=== PATIENT | male | born 1980 | race Caucasian/White ===

== ENCOUNTER 2017-12-05 18:18 | Observation (INO) | payer MEDICARE ==
[~2017-12-05] VITALS: Ht 182.9 cm; Wt 124.7 kg
[~2017-12-05 18:18] MED LIST: OXYCONTIN80 M1 PO; [UNRECOGNIZED DRUG - OTHER] PO
[2017-12-05] MEDS ORDERED: ASPIRIN 81 MG CHEW TAB PO ONE (18:45)
[2017-12-05] MEDS ORDERED: METHADONE PO (18:46)
[2017-12-05 19:18] LABS: BASOPHILS # (AUTO) 0.1 (0.0-0.1); BASOPHILS % 0.8 % (0.0-1.0); EOSINOPHILS # (AUTO) 0.3 (0.0-0.4); EOSINOPHILS % 3.4 % (0.0-6.0); HEMATOCRIT 37.6 % (38.2-49.6); HEMOGLOBIN 13.3 g/dL (14.0-18.0); LYMPHOCYTES % 34.2 % (18.0-39.1); MEAN CORPUSCULAR HEMOGLOBIN 29.9 pg (28-32); MEAN CORPUSCULAR HGB CONC 35.4 g/dL (31-35); MEAN CORPUSCULAR VOLUME 84.5 fL (81-99); MONOCYTES # (AUTO) 0.8 (0.2-0.8); MONOCYTES % 8.6 % (4.4-11.3); NEUTROPHILS # (AUTO) 4.6 (2.1-6.9); NEUTROPHILS % 52.2 % (38.7-80.0); PLATELET COUNT 269 x10e3/uL (140-360); RED BLOOD COUNT 4.45 x10e6/uL (4.3-5.7)
--- NOTE | 2017-12-05 19:24 | Diagnostic Imaging Report ---
EXAMINATION: CHEST SINGLE (PORTABLE) INDICATION: \S\CHEST PAIN \S\[id number] \S\1855 \S\Y COMPARISON: None FINDINGS: AP view TUBES and LINES: None. LUNGS: Lungs are well inflated. Lungs are clear. There is no evidence of pneumonia or pulmonary edema. PLEURA: No pleural effusion or pneumothorax. HEART AND MEDIASTINUM: The cardiomediastinal silhouette is unremarkable. BONES AND SOFT TISSUES: No acute osseous lesion. Soft tissues are unremarkable. UPPER ABDOMEN: No free air under the diaphragm. IMPRESSION: No acute thoracic abnormality. Signed by: DR. Aaron Alicia MD on 12/05/2017 7:20 PM
[2017-12-05 19:35] LABS: ALANINE AMINOTRANSFERASE 27 IU/L (0-55); ALBUMIN 3.9 g/dL (3.5-5.0); ALKALINE PHOSPHATASE 64 IU/L (40-150); BLOOD UREA NITROGEN 18 mg/dL (7-26); BUN/CREATININE RATIO 16 (6-25); CALCIUM 9.7 mg/dL (8.4-10.2); CARBON DIOXIDE 25 mmol/L (22-29); CHLORIDE 102 mmol/L (98-107); CREATINE KINASE 428 IU/L (30-200); EST GLOMERULAR FILTRATION RATE > 60 ML/MIN (60-); GLUCOSE 97 mg/dL (74-118); SODIUM 139 mmol/L (136-145)
[2017-12-05 20:17] LABS: INR 0.98; PROTHROMBIN TIME 12.2 seconds (11.9-14.5)
[2017-12-05 20:19] LABS: PARTIAL THROMBOPLASTIN TIME 39.8 seconds (23.8-35.5)
[2017-12-05] MEDS ORDERED: ENOXAPARIN SODIUM INJ 100 MG/ML SYR SC STA (20:53)
[2017-12-05] MEDS ORDERED: SODIUM CHLORIDE FLUSH 10 ML SYR INJ PRN (21:45)
[2017-12-05 23:00] VITALS: BP 134/80
[2017-12-06] VITALS (8 sets, daily range): BP systolic 115–138; BP diastolic 64–93
[2017-12-06] MEDS: FAMOTIDINE 20 MG/2 ML VIAL IV SCH ×2 (00:47→08:40)
[2017-12-06 04:11] LABS: CHOL/HDL RATIO 6.5 (3.9-4.7); CHOLESTEROL 181 MD/DL (0-199); HDL CHOLESTEROL 28 MG/DL (40-60); TRIGLYCERIDES 577 MG/DL (0-149)
[2017-12-06 04:13] LABS: CREATINE KINASE MB 2.1 ng/mL (0-5.0)
--- NOTE | 2017-12-06 06:36 | Diagnostic Imaging Report ---
EXAMINATION: CHEST XRAY LINE PLACEMENT INDICATION: PICC line placement. COMPARISON: December 05, 2017 FINDINGS: TUBES and LINES: Left upper extremity PICC line is in place with tip at the level of the atriocaval junction. LUNGS: Lungs are not well inflated. Lungs are clear. There is no evidence of pneumonia or pulmonary edema. PLEURA: No pleural effusion or pneumothorax. HEART AND MEDIASTINUM: The cardiomediastinal silhouette is unremarkable. BONES AND SOFT TISSUES: No acute osseous lesion. Soft tissues are unremarkable. UPPER ABDOMEN: No free air under the diaphragm. IMPRESSION: No acute thoracic abnormality. Signed by: Dr. Etienne Soler M.D. on 12/06/2017 6:33 AM
[2017-12-06] MEDS ORDERED: METHADONE PO SCH ×2 (09:00)
[2017-12-06] MEDS ORDERED: NICOTINE 21 MG/EA PATCH TOP SCH (09:00)
[2017-12-06] MEDS ORDERED: ASPIRIN 81 MG ENTERIC COATED PO SCH (09:00)
[2017-12-06] MEDS ORDERED: METHADONE HCL 10 MG TAB PO SCH (12:00)
[2017-12-06 12:28] LABS: CREATINE KINASE MB 2.2 ng/mL (0-5.0)
--- NOTE | 2017-12-06 14:16 | Diagnostic Imaging Report ---
Ventilation/perfusion lung scan Clinical Information:37 F with chest pain and dyspnea Comparison: Chest radiograph 12/05/2017 Discussion: Xenon-133 gas 9.4 mCi was administered via inhalation. Dynamic images of the lungs in the posterior projection were obtained through single breath, equilibrium, and washout phases. Distribution of tracer activity is mildly irregular throughout the lungs. There are no segmental ventilatory defects. Washout of tracer is diffusely delayed with no air trapping. Perfusion images of the lungs were obtained in multiple projections following intravenous administration of approximately 6.0 mCi of Tc-99m MAA. Distribution of tracer is mildly irregular throughout the lungs. The contours of the lungs are well demarcated. There are no segmental perfusion defects of any size. The cardiomediastinal silhouette is unremarkable. Impression: Scan findings represent a VERY LOW probability for acute pulmonary embolic disease based on the PIOPED II criteria. Scan evidence of obstructive lung disease. Signed by: Dr. Irene Graf M.D. on 12/06/2017 2:13 PM
[2017-12-06 16:48] LABS: ABG PH 7.43 (7.31-7.41)
[2017-12-06 16:49] LABS: ABG HCO3 32 mmol/L (23-28); ABG PCO2 49 mmHg (41-51); ABG PO2 74 mmHg (80-105)
--- NOTE | 2017-12-06 17:45 | Diagnostic Imaging Report ---
PROCEDURE: CT CHEST WITHOUT CONTRAST CT scan of the chest WITHOUT intravenous contrast, using standard protocol. TECHNIQUE: The chest was scanned utilizing A multidetector helical scanner from the apex to the level of the adrenal glands. No IV contrast was administered per physician's request. Coronal and sagittal multiplanar reformations were obtained. COMPARISON: Patients [facility], , CHEST SINGLE (PORTABLE), 12/05/2017, 18:58. INDICATIONS: SHORT OF BREATH , CHEST PAIN FINDINGS: Lack of intravenous contrast limits evaluation of parenchymal findings or vascular pathology. Lines/tubes: Left-sided PICC line has distal tip at the distal SVC/cavoatrial junction. Lungs and Airways: 2 mm calcified granuloma in the posterolateral right lower lobe (series 3, image 42). Lungs are clear, without nodules, masses, opacities or consolidation. Airways are clear, without endobronchial lesions. Pleura: No effusion, or pneumothorax. Heart and mediastinum: The thyroid is unremarkable. Heart size is normal. No pericardial effusion. Aorta is non-aneurysmal. Main pulmonary arteries normal in caliber. Lymph nodes: No mediastinal, hilar, or axillary adenopathy. Abdomen: Limited non-enhanced of the upper abdomen show no abnormality within the visualized liver, spleen, pancreas, or kidneys. The adrenal glands are unremarkable. Distended, food-filled stomach. Bones: No aggressive lytic lesions. Mild degenerative disc changes in the lower thoracic spine. Soft tissues are unremarkable. IMPRESSION: 1. Essentially unremarkable chest CT. Kaleb Wall M.D. Dictated by: Kaleb Wall M.D. on 12/06/2017 at 17:50 Electronically approved by: Kaleb Wall M.D. on 12/06/2017 at 17:50
--- NOTE | 2017-12-06 18:27 | Consultation ---
DATE OF CONSULTATION: December 06, 2017 PULMONARY CONSULTATION REASON FOR CONSULTATION: Shortness of breath. HISTORY OF PRESENT ILLNESS: Mr. Castro is a 37-year-old male who presented to the emergency room with shortness of breath. Patient reports that the shortness of breath is even at rest. He denies any complaints of chest pain. He reports allergies, nasal congestion and wheezing. He has been a smoker for 20 years, 1 pack per day. 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 He is on methadone for pain control. REVIEW OF SYSTEMS: GENERAL: Denies any fever or chills. HEENT: Denies any head trauma. ENT denies any earache. CV: He denies any chest pain. RESPIRATORY: Shortness of breath. GI: Denies any nausea or vomiting. Rest of the review systems are negative except as in history of present illness. PAST MEDICAL HISTORY: Bilateral hip replacement surgery. PAST SURGICAL HISTORY: Bilateral hip replacement surgery. 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 He has been a smoker. He lives with his . PHYSICAL EXAMINATION: VITALS: Temperature 97.4, pulse of 64, blood pressure 129/64. Respiratory rate of 18. O2 sat 97%. HEENT: Normocephalic, atraumatic. NECK: Supple. CHEST: Clear to auscultation bilaterally. No wheezing. Decreased air entry. HEART: S1 and S2 audible. ABDOMEN: Soft and nontender. EXTREMITIES: No clubbing cyanosis or edema. NEUROLOGIC: Awake and alert. No focal neurologic deficit. LABORATORY DATA: White count of 8,000, hemoglobin 13.3. Platelets 269,000. Chemistries within normal limits. CPK's were high. ASSESSMENT AND PLAN: Mr. Castro is a 37-year-old male with shortness of breath. VQ scan is negative for any pulmonary embolism, possibility of asthma versus COPD. PLAN: 1. CT of the chest without contrast. 2. Pulmonary function test. 3. Start the patient on DuoNeb. 4. Pulmicort nebs. 5. ABG will be done as patient is on room and does not appear to be in any distress. Thank you for this consult. Job#: [id number]
[2017-12-06] MEDS ORDERED: BUDESONIDE 0.5MG/2 ML NEB INH SCH (19:00)
[2017-12-06] MEDS ORDERED: ALBUTEROL/IPRATROPIUM 3 ML NEB NEB SCH (19:00)
[2017-12-06] MEDS ORDERED: FAMOTIDINE 20 MG TAB PO SCH (21:00)
--- NOTE | 2017-12-07 00:15 | Consultation ---
DATE OF CONSULTATION: December 06, 2017 CARDIOLOGY CONSULTATION REASON FOR CONSULTATION: Chest pain. CHIEF COMPLAINT: "I feel like I cannot get enough air and my chest is going to hurt if I try to take a deep breath." HISTORY OF PRESENT ILLNESS: The patient is a 37-year-old male with a long history of smoking, over 2 packs a day and family history of hypertension, who has recently had a baby and is in the process of moving, is under a lot of stress in his everyday life. He presents to the hospital with a several weeks of feeling like he cannot catch his breath and cannot get enough air when he tries to take a deep breath. He denies any chest pain or pressure, however, says that he thinks if he took a deep breath, his chest would hurt. Other than smoking, he does not have any cardiovascular risk factors. He does not have diabetes, hypertension or hyperlipidemia and also very young at an age of 37. He has already been ruled out with negative cardiac enzymes and normal EKG. An echocardiogram has been ordered and performed. REVIEW OF SYSTEMS: Ten-point review of systems was performed, was negative other than what is mentioned in the history of present illness. PAST MEDICAL HISTORY: None. FAMILY HISTORY: History of hypertension in mother and siblings. SOCIAL HISTORY: Patient is a 2-pack per day smoker for past many years. Continues to smoke currently. Denies any significant alcohol or drug use. PHYSICAL EXAMINATION: VITAL SIGNS: Temperature 97.5, heart rate 61, respiratory rate 20, blood pressure 137/76, saturating 96% on room air. EYES: Conjunctivae clear. EARS, NOSE, MOUTH AND THROAT: Normal mucosa. No pallor or bleeding. NECK: No jugular venous distention. MUSCULOSKELETAL: Normal muscle tone and strength. No atrophy or abnormal movements. EXTREMITIES: No clubbing or cyanosis. No venostasis changes or ulcers. GENERAL: Well-developed, well-nourished, muscular male. CARDIOVASCULAR: PMI is nondisplaced. Regular S1 and S2. No murmurs, rubs or gallops. Normal carotid pulses. Palpable femoral pulses. Palpable pedal pulses. No peripheral edema or varicosities. RESPIRATORY: No respiratory distress. Lungs are clear to auscultation bilaterally. ABDOMEN: Soft, nontender, nondistended. No masses. No hepatosplenomegaly. NEURO AND PSYCH: Alert and oriented to person, place and time. Normal affect. MEDICATIONS: Aspirin 81 mg daily is his only cardiac medication at this time. IMAGING DATA: Reviewed. Notable for normal chest CT, normal EKG. TELEMETRY: Data reviewed, shows normal sinus rhythm with no significant arrhythmias. ASSESSMENT: 1. Dyspnea. 2. Atypical chest discomfort. PLAN: I reviewed his echocardiogram in detail and appear to be essentially normal with normal LV and RV function and no significant valvular abnormalities. Patient has already been ruled out for acute ND with serial troponins being negative and normal EKG. He essentially has no risk factors and is very young at the age of 37. Based on all of these, no further cardiovascular investigation is necessary. Patient is likely experiencing stress and anxiety due to recent life changes. Thank you for involving us in this patient's care. Job#: [id number]
[2017-12-07] MEDS ORDERED: LORATADINE/PSEUDOEPHEDRINE 24 HR SR TAB PO SCH (09:00)
[2017-12-07] MEDS ORDERED: METHADONE HCL 10 MG TAB PO SCH (09:00)
[2017-12-07] MEDS ORDERED: FLUTICASONE PROPIONATE NASAL SPRAY NS SCH (09:00)
== END 2017-12-06 22:27 | disposition home or self-care (01) ==
LOC: ER 18:18 → ERHOLD 21:51 → IMCU 23:01
PROVIDERS: ADMIT Internal Medicine; ATTEND Internal Medicine
DX: R07.89 Other chest pain (principal); F17.210 Nicotine dependence, cigarettes, uncomplicated; Z96.643 Presence of artificial hip joint, bilateral; Z82.49 Family history of ischemic heart disease and other diseases of the circulatory system; G89.29 Other chronic pain; R06.00 Dyspnea, unspecified
CPT/HCPCS: 36415 ×2; 36569 ×2; 71045 ×2; 71250; 78582; 80053; 80061; 82550 ×2; 82553 ×2; 82805; 83880; 84484 ×2; 85025; 85379; 85610; 85730; 93005; 93306; 94640; 99284; A9540; A9558; G0378 ×2; J1650; 36600

== ENCOUNTER 2018-04-08 16:21 | Inpatient (IN) | payer MEDICARE ==
[~2018-04-08] VITALS: Ht 180.3 cm; Wt 121.6 kg
[~2018-04-08 16:21] MED LIST changes: +METHADONE PO
--- OUTSIDE RECORDS SUMMARY | 2018-04-08 16:25 | XMS REPORT | Clinical Summary ---
Author Author DEBBI [facility] Address Unknown Phone Unavailable Care Team Providers Care Loom Setter Name Role Phone Sharpless PCP Allergies Comments Active Allergy Reactions Severity Noted Date Epidermolysis bullosa Skin peels off and causes staff infection. No paper tape. Adhesive Other (See 06/03/2015 Comments) Medications End Date Status Medication Sig Dispensed Refills Start Date Active METHADONE HCL (METHADONE Take 120 mg 0 ORAL) by mouth every morning Goes to clinic between 6-9am for daily Methadone dose. Active Problems Problem Noted Date Secondary osteoarthritis of hip 07/16/2015 Arthritis of left hip 07/16/2015 Immunizations Name Dates Previously Given Next Due Influenza Three-TIV PF 5+ 07/17/2015 YRS Social History Date Tobacco Use Types Packs/Day Years Used Current Every Day Smoker 20 Smokeless Tobacco: Never Used Tobacco Cessation: Ready to Quit: Yes; Counseling Given: Yes Alcohol Use Drinks/Week oz/Week Comments No Sex Assigned at Date Recorded Not on file Industry Job Start Date Occupation Not on file Not on file Not on file Travel End Travel History Travel Start No recent travel history available. Last Filed Vital Signs Not on file Plan of Treatment Not on file Implants Device Identifier Shelf Expiration Date Model / Serial / Lot Implanted Type Area Manufactur er 12/20/2024 [id number] / / [id number] Acet Shell,Continuum Multihole 56kk Joints Left: Hip [employer] - [id number] Implanted: Qty: 1 on 07/16/2015 by Kuldip Kelly MD 04/21/2025 [id number] / / [id number] Screw,Bone Selftap 6.5x25mm - Joints Left: Hip [employer] [id number] Implanted: Qty: 1 on 07/16/2015 by Kuldip Kelly MD 03/22/2025 [id number] / / [id number] Screw,Bone Selftap 6.5x25mm - Joints Left: Hip [employer] [id number] Implanted: Qty: 1 on 07/16/2015 by Kuldip Kelly MD 01/21/2020 [id number] / / [id number] Liner Trilogy Constr Sz Kk Joints Left: Hip [employer]:ZIM [id number] - [id number] STEFAN US Implanted: Qty: 1 on 07/16/2015 by Kuldip Kelly MD 10/20/[id number] / / [id number] Head Fem Ceram Biolox Delta 36 Joints Left: Hip GUILLER[employer]:ZIM [id number] - [id number] STEFAN US Implanted: Qty: 1 on 07/16/2015 by Kuldip Kelly MD 04/21/2025 [id number] / / [id number] Neck,Modular G 05/05 Kinectiv - Joints Left: Hip [employer] [id number] Implanted: Qty: 1 on 07/16/2015 by Kuldip Kelly MD 03/22/2025 [id number] / / [id number] Stem Ml-Tpr Kinectv Sz-10.0 - Joints Left: Hip GUILLERMO:ZIM [id number] [facility] US Implanted: Qty: 1 on 07/16/2015 by Kuldip Kelly MD Results Not on fileafter 04/07/2017 Insurance Payer Benefit Subscriber ID Type Phone Address Plan / Group [facility] - AARP/MEDIC xxxxxxxxx MEDICARE MGD CARE ARE COMPLETE Advance Directives For more information, please contact: [address] [address] Date Inactivated Comments Code Status Date Activated 07/16/2015 9:47 PM Full Code 07/16/2015 10:40 AM This code status was determined by: Patient
--- NOTE | 2018-04-08 17:21 | Diagnostic Imaging Report ---
Exam: Right foot 3 views History: Pain Comparison: None. Findings: No fracture. Hallux valgus. Joint spaces preserved. Soft tissue swelling. Impression: No acute osseous abnormality Signed by: Dr. Maurice Thomas M.D. on 04/08/2018 5:18 PM
[2018-04-08] MEDS ORDERED: TETANUS/DIPHTHERIA TOX ADULT 0.5 ML SYR IM ONE (18:00)
[2018-04-08] MEDS ORDERED: VANCOMYCIN 1GM/NS 250 ML 250 ML IV ONE (18:30)
[2018-04-08 18:38] LABS: BASOPHILS # (AUTO) 0.1 (0.0-0.1); BASOPHILS % 0.5 % (0.0-1.0); EOSINOPHILS # (AUTO) 0.2 (0.0-0.4); EOSINOPHILS % 1.4 % (0.0-6.0); HEMATOCRIT 41.3 % (38.2-49.6); HEMOGLOBIN 13.8 g/dL (14.0-18.0); LYMPHOCYTES % 17.3 % (18.0-39.1); MEAN CORPUSCULAR HEMOGLOBIN 28.8 pg (28-32); MEAN CORPUSCULAR HGB CONC 33.4 g/dL (31-35); MEAN CORPUSCULAR VOLUME 86.2 fL (81-99); MONOCYTES # (AUTO) 0.8 (0.2-0.8); NEUTROPHILS # (AUTO) 8.3 (2.1-6.9); NEUTROPHILS % 73.4 % (38.7-80.0); PLATELET COUNT 276 x10e3/uL (140-360); RED BLOOD COUNT 4.79 x10e6/uL (4.3-5.7); RED CELL DISTRIBUTION WIDTH 12.5 % (11.7-14.4)
[2018-04-08] MEDS: PIPER-TAZ 3.375 GM 50 ML IV SCH ×2 (18:41→23:53)
[2018-04-08 19:00] LABS: ALANINE AMINOTRANSFERASE 20 IU/L (0-55); ALBUMIN 3.7 g/dL (3.5-5.0); ALKALINE PHOSPHATASE 76 IU/L (40-150); BLOOD UREA NITROGEN 13 mg/dL (7-26); BUN/CREATININE RATIO 16 (6-25); CALCIUM 8.6 mg/dL (8.4-10.2); CARBON DIOXIDE 24 mmol/L (22-29); CHLORIDE 100 mmol/L (98-107); CREATININE, SERUM 0.81 mg/dL (0.72-1.25); EST GLOMERULAR FILTRATION RATE > 60 ML/MIN (60-); GLUCOSE 92 mg/dL (74-118); SODIUM 136 mmol/L (136-145)
[2018-04-08] MEDS ORDERED: ONDANSETRON HCL INJ 2 MG/ML VIAL IV PRN ×2 (19:00→19:15)
--- OUTSIDE RECORDS SUMMARY | 2018-04-08 19:13 | XMS REPORT | Clinical Summary ---
Author Author DEBBI [facility] Address Unknown Phone Unavailable Care Team Providers Care Rasper Machine Operator Name Role Phone Sharpless PCP Allergies Comments [...] Lot Implanted Type Area Manufactur er 12/20/2024 [id number] / / [id number] Acet Shell,Continuum Multihole 56kk Joints Left: Hip [employer] - [id number] Implanted: Qty: 1 on 07/16/2015 by Kuldip Kelly MD 04/21/2025 [id number] / / [id number] Screw,Bone Selftap 6.5x25mm - Joints Left: Hip [employer] [id number] Implanted: Qty: 1 on 07/16/2015 by Kuldip Kelly MD 03/22/2025 [id number] / / [id number] Screw,Bone Selftap 6.5x25mm - Joints Left: Hip [employer] [id number] Implanted: Qty: 1 on 07/16/2015 by Kuldip Kelly MD 01/21/2020 [id number] / / [id number] Liner Trilogy Constr Sz Kk Joints Left: Hip [employer]:ZIM [id number] - [id number] STEFAN US Implanted: Qty: 1 on 07/16/2015 by Kuldip Kelly MD 10/20/[id number] / / [id number] Head Fem Ceram Biolox Delta 36 Joints Left: Hip GUILLER[employer]:ZIM [id number] - [id number] STEFAN US Implanted: Qty: 1 on 07/16/2015 by Kuldip Kelly MD 04/21/2025 [id number] / / [id number] Neck,Modular G 05/05 Kinectiv - Joints Left: Hip [employer] [id number] Implanted: Qty: 1 on 07/16/2015 by Kuldip Kelly MD 03/22/2025 [id number] / / [id number] Stem Ml-Tpr Kinectv Sz-10.0 - Joints Left: Hip GUILLERMO:ZIM [id number] [facility] US Implanted: Qty: 1 on 07/16/2015 by Kuldip Kelly MD Results Not on fileafter 04/07/2017 Insurance Payer Benefit Subscriber ID Type Phone Address Plan / Group [facility] - AARP/MEDIC xxxxxxxxx MEDICARE MGD CARE ARE COMPLETE Advance Directives For more information, please contact: [address] [address] Date Inactivated Comments Code Status Date Activated 07/16/2015 9:47 PM Full Code 07/16/2015 10:40 AM This code status was determined by: Patient
[2018-04-08] MEDS ORDERED: HYDROXYZINE HCL 10 MG TAB PO PRN (19:15)
[2018-04-08] MEDS ORDERED: ZOLPIDEM TARTRATE 10 MG TAB PO PRN (19:15)
--- NOTE | 2018-04-08 20:23 | Diagnostic Imaging Report ---
EXAM: CHEST XRAY LINE PLACEMENT, AP 1 view INDICATION: PICC placement COMPARISON: AP view the chest December 06, 2017 FINDINGS: LINES/TUBES: Interval placement of right approach PICC that terminates at the expected location of the atriocaval junction. Interval removal of left approach PICC. LUNGS: No consolidations or edema. PLEURA: No effusions or pneumothorax. HEART AND MEDIASTINUM: Normal size and contour. BONES AND SOFT TISSUES: No acute findings. IMPRESSION: Interval placement of right approach PICC that terminates at the expected location of the atriocaval junction. Signed by: Dr. Lisa Sanchez M.D. on 04/08/2018 8:20 PM
--- NOTE | 2018-04-08 20:33 | History and Physical ---
CHIEF COMPLAINT: Abscess of the right foot on the dorsal aspect. REFERRING PHYSICIAN: Dr. Carter Dang. HISTORY OF PRESENT ILLNESS: Patient is a 38-year-old man. He has a history of prior narcotic addiction, IV drug abuse. He has been in methadone maintenance for the past 5 years. About 4 days ago, he tried to inject some methadone into the vein in the dorsum of his foot. He subsequently developed worsening swelling and abscess. PAST MEDICAL HISTORY 1. Narcotic addiction, requiring methadone maintenance. 2. Slipped congenital femoral epiphysis. 3. History of kidney disease causing easy blister formation. 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 SOCIAL HISTORY: The patient has a history of prior IV drug abuse. He is not an active smoker or drinker. ALLERGIES: HE IS ALLERGIC TO TAPE AND ADHESIVES. FAMILY HISTORY: Noncontributory. REVIEW OF SYSTEMS: Possible fevers. There is no headache or neck pain. He has no chest pain. He does not complain of dyspnea. He has no nausea or vomiting. He is not having any abdominal pain. He has no leg edema. He does have pain and swelling in his foot. PHYSICAL EXAMINATION VITAL SIGNS: The patient is afebrile. Vital signs are stable. HEENT: No facial swelling or erythema. Nasal mucosa is normal. The oropharynx is normal. NECK: No JVD or thyromegaly. There is no nuchal rigidity. LYMPHATIC: No submandibular, cervical, or supraclavicular adenopathy. CARDIAC: Regular rate and rhythm with normal S1 and S2. There are no murmurs or rubs. RESPIRATORY: Auscultation of the lungs shows clear breath sounds bilaterally. There is no wheezing. ABDOMEN: Soft and nontender. There is no rebound or guarding. EXTREMITIES: No leg edema or calf tenderness. There is erythema and abscess formation on the dorsum of the foot. LABORATORY DATA: CBC is within normal limits. CMP is within normal limits. IMPRESSION 1. Cellulitis of the dorsum of the foot with abscess formation and sepsis present on admission. 2. Narcotic addiction and methadone maintenance. 3. History of bilateral hip replacements related to slipped epiphysis. PLAN 1. IV antibiotics. 2. Await culture results. 3. Consult podiatry for possible debridement. 4. Consult infectious disease. Job#: [id number] RTY
[2018-04-08] MEDS ORDERED: SODIUM CHLORIDE 0.9% 250ML 250 ML ONE (20:43)
[2018-04-08 20:50] VITALS: BP 117/81
[2018-04-08] MEDS: CEFEPIME HCL 2 GM VIAL IV SCH (20:58)
[2018-04-08] MEDS: FLUTICASONE PROPIONATE NASAL SPRAY NS SCH (21:00)
[2018-04-08 21:01] VITALS: BP 117/81
[2018-04-08 21:37] VITALS: BP 117/81
[2018-04-08] MEDS: SODIUM CHLORIDE 0.9% 1000ML 1,000 ML IV SCH (23:53)
[2018-04-09] VITALS (8 sets, daily range): BP systolic 113–141; BP diastolic 60–87
[2018-04-09 04:29] LABS: BASOPHILS # (AUTO) 0.1 (0.0-0.1); BASOPHILS % 0.6 % (0.0-1.0); EOSINOPHILS # (AUTO) 0.2 (0.0-0.4); EOSINOPHILS % 2.7 % (0.0-6.0); HEMATOCRIT 36.6 % (38.2-49.6); HEMOGLOBIN 12.3 g/dL (14.0-18.0); LYMPHOCYTES # (AUTO) 1.6 (1.0-3.2); LYMPHOCYTES % 19.6 % (18.0-39.1); MEAN CORPUSCULAR HEMOGLOBIN 29.2 pg (28-32); MEAN CORPUSCULAR HGB CONC 33.6 g/dL (31-35); MEAN CORPUSCULAR VOLUME 86.9 fL (81-99); MONOCYTES # (AUTO) 0.7 (0.2-0.8); MONOCYTES % 8.8 % (4.4-11.3); NEUTROPHILS # (AUTO) 5.6 (2.1-6.9); NEUTROPHILS % 67.9 % (38.7-80.0); PLATELET COUNT 215 x10e3/uL (140-360); RED BLOOD COUNT 4.21 x10e6/uL (4.3-5.7); RED CELL DISTRIBUTION WIDTH 12.5 % (11.7-14.4)
[2018-04-09] MEDS: SODIUM CHLORIDE 0.9% 1000ML 1,000 ML IV SCH ×3 (04:49→19:36)
[2018-04-09 04:50] LABS: ALANINE AMINOTRANSFERASE 18 IU/L (0-55); ALBUMIN 3.2 g/dL (3.5-5.0); ALBUMIN/GLOBULIN RATIO 0.9 (0.8-2.0); ALKALINE PHOSPHATASE 66 IU/L (40-150); ANION GAP 14.6 mmol/L (8-16); BLOOD UREA NITROGEN 15 mg/dL (7-26); BUN/CREATININE RATIO 19 (6-25); CALCIUM 7.9 mg/dL (8.4-10.2); CARBON DIOXIDE 23 mmol/L (22-29); CHLORIDE 104 mmol/L (98-107); EST GLOMERULAR FILTRATION RATE > 60 ML/MIN (60-); GLUCOSE 132 mg/dL (74-118); POTASSIUM 3.6 mmol/L (3.5-5.1); SODIUM 138 mmol/L (136-145)
[2018-04-09] MEDS: PIPER-TAZ 3.375 GM 50 ML IV SCH ×4 (05:20→23:21)
[2018-04-09] MEDS: CEFEPIME HCL 2 GM VIAL IV SCH (05:57)
[2018-04-09] MEDS: VANCOMYCIN 1GM/NS 250 ML 250 ML IV SCH ×2 (06:04→17:36)
[2018-04-09] MEDS: FLUTICASONE PROPIONATE NASAL SPRAY NS SCH ×2 (08:59→16:54)
[2018-04-09] MEDS: METHADONE HCL 10 MG TAB PO SCH (09:00)
[2018-04-09] MEDS: NICOTINE 21 MG/EA PATCH TOP SCH (10:02)
[2018-04-09] MEDS ORDERED: IBUPROFEN 400 MG TAB PO PRN (11:45)
[2018-04-09] MEDS ORDERED: ACETAMINOPHEN 325 MG TAB PO PRN (11:45)
--- NOTE | 2018-04-09 14:30 | Consultation ---
DATE OF CONSULTATION: REASON FOR CONSULTATION: Infection of the right foot abscess. HISTORY OF PRESENT ILLNESS: This patient who is a 38-year-old white male, history of addiction, IV drug abuse. He has been on methadone maintenance for the last 5 years but about a week ago, he tried to inject methadone inside the vein of the dorsal of his right foot, found to have redness and swelling, getting progressively worse, came to the emergency room where he is being admitted. The patient is currently lying in bed comfortably. He does have history of narcotic addiction, requiring methadone maintenance; history of slipped congenital femoral epiphysis, status post bilateral hip replacement due to that; history of skin disease causing easy blister formation. 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 He is currently lying in bed comfortably. PAST MEDICAL HISTORY: As above. PAST SURGICAL HISTORY: As above. ALLERGIES: NKA. SOCIAL HISTORY: He denies smoking but he does admit that he is on methadone and drug problems. LABORATORY DATA: Blood cultures are still pending. White count on admission was 11.38, hemoglobin 13.8, hematocrit 41, his platelets 271. Sodium 138, potassium 3.6, creatinine 0.80, albumin 3.2. He had an x-ray of his foot which showed no acute bone abnormality. MEDICATION LIST: He is currently on Zosyn, NicoDerm, methadone, vancomycin, cefepime. REVIEW OF SYSTEMS HEENT: There is no headache, visual changes, hearing changes. GI: There is no nausea, no vomiting, no diarrhea. CARDIAC: There is no arrhythmia. NEURO: No seizure activity. SKIN: There are no other rashes. Otherwise, all within normal limits. PHYSICAL EXAMINATION GENERAL: He is currently alert, oriented, does not seem to be in acute distress. VITALS: Stable, currently afebrile. HEENT: He does not appear icteric. Normocephalic. NECK: Supple. No JVD. No lymphadenopathy. No thyromegaly. CHEST: Clear bilateral. COR: S1, S2. No S3, S4, or murmur. ABDOMEN: Soft. Obese. No tenderness. No hepatosplenomegaly. EXTREMITIES: The right foot, there is erythema. There is edema. There is induration. IMPRESSION: Cellulitis, infection of the foot. Concerned about osteomyelitis. Concerned about asking the patient with IV drug abuse. He does have bilateral hip replacement. We will obtain a CAT scan of the foot. Agree with vancomycin. Agree with Zosyn. Discontinue cefepime. Surgical consultation was done if I would need I and D. We will check for HIV and hepatitis A, B, and C; and RPR. Further recommendations to follow. We will get the vancomycin trough. We will get the sed rate, reactive protein. Job#: [id number] LPA
[2018-04-09 14:56] LABS: HIV 1&2 AB SCREEN NON-REACTIVE (NONREACTIVE)
[2018-04-09] MEDS ORDERED: IOPAMIDOL 370 MG/ML 200 ML INFUS..BTL INJ ONE (16:48)
[2018-04-09] MEDS ORDERED: SODIUM CHLORIDE 0.9% 50ML 50 ML ONE (16:48)
--- NOTE | 2018-04-09 18:02 | Diagnostic Imaging Report ---
CT Lower extremity right with contrast, with reconstructions. CPT code: 04363, 88203 Indications: Abscess. Technique: Contiguous 0.63 mm thickness axial images were obtained through the right foot at the intravenous administration of 100 cc of nonionic contrast Dose reduction techniques used: Automated exposure control, adjustment of the mAs and/or kVp according to patient size, standardized low-dose protocol, and/or iterative reconstruction technique. RADIATION DOSE: Total DLP: 141.03 mGy*cm Estimated effective dose: (DLP x 0.015 x size factor) mSv CTDIvol has been reviewed. It is below the limits set by the Radiation Protocol Committee (RPC). Comparison: Foot x-rays 04/08/2018. Findings: Soft tissue peripherally enhancing fluid collection in the dorsum of the foot measures 1.4 x 2.1 x 1.8 cm. This overlies the third metatarsal. No evidence of surrounding air. There is extensive subcutaneous inflammation of the dorsum of the foot. No ectatic vascular structures. Muscle bundles are normal in morphology. There is inflammation of the tendon of the extensor digitorum longus. Bones: The bones are intact and normal in morphology without periosteal new bone formation or focal demineralization. There are mild degenerative changes of the great toe. No acute fracture or dislocation. No lytic or blastic osseous lesions. A small os trigonum is present. IMPRESSION: 1. Abscess in the dorsum of the foot with surrounding cellulitis and inflammation of the tendon of the extensor digitorum longus. 2. No CT evidence of osteomyelitis. MRI and bone scan are more sensitive modalities to detect osteomyelitis. Thank you for this referral. Signed by: Dr. Sridevi Almendarez MD on 04/09/2018 5:59 PM
[2018-04-10] VITALS (7 sets, daily range): BP systolic 124–151; BP diastolic 69–95
[2018-04-10] MEDS: PIPER-TAZ 3.375 GM 50 ML IV SCH ×3 (05:05→18:22)
[2018-04-10] MEDS ORDERED: ALTEPLASE RECOMBINANT 2 MG/2 ML VIAL IV ONE (06:30)
[2018-04-10] MEDS: FLUTICASONE PROPIONATE NASAL SPRAY NS SCH ×2 (09:16→17:00)
[2018-04-10] MEDS: NICOTINE 21 MG/EA PATCH TOP SCH (09:16)
[2018-04-10] MEDS: METHADONE HCL 10 MG TAB PO SCH (09:16)
--- NOTE | 2018-04-10 09:29 | Progress Note ---
DATE: April 10, 2018 SUBJECTIVE: Patient is doing somewhat better, but still has swelling and tenderness to the right lower extremity. Is denying any history of fever, chills, nausea, or vomiting. OBJECTIVE VITAL SIGNS: Afebrile, pulse rate 51, respirations 18, blood pressure 142/89, O2 saturation 97%. EXTREMITIES: There is positive cellulitis to the dorsal aspect of the right foot. The abscess is starting to build up again with some drainage noted. Pedal pulses are palpable. ASSESSMENT: Abscess, deep with cellulitis. PLAN: Patient will be taken for surgical intervention tomorrow. Deep I and D. Possible bone debridement may need to be done. Will continue IV antibiotics. Continue local wound care. Job#: [id number] FANTASMA
[2018-04-10] MEDS: SODIUM CHLORIDE 0.9% 1000ML 1,000 ML IV SCH ×2 (10:49→22:53)
--- NOTE | 2018-04-10 14:44 | Diagnostic Imaging Report ---
EXAMINATION: PA and lateral views of the chest. COMPARISON: None CLINICAL HISTORY: Preoperative evaluation, infection DISCUSSION: Lines/tubes: Right PICC line with the distal tip overlying the superior vena cava. Lungs: The lungs are well inflated and clear. No pneumonia or pulmonary edema. Pleura: There is no pleural effusion or pneumothorax. Heart and mediastinum: The cardiomediastinal silhouette is normal. Bones and soft tissues: No acute bony abnormalities. IMPRESSION: Right PICC line with the distal tip overlying the superior vena cava. Signed by: Dr. Maurice Thomas M.D. on 04/10/2018 2:41 PM
[2018-04-10] MEDS: VANCOMYCIN 1GM/NS 250 ML 250 ML IV SCH ×2 (18:22→18:24)
[2018-04-11] VITALS: BP 117/73
[2018-04-11] MEDS: PIPER-TAZ 3.375 GM 50 ML IV SCH ×4 (00:44→18:34)
[2018-04-11 04:00] VITALS: BP 144/91
[2018-04-11] MEDS: VANCOMYCIN 1GM/NS 250 ML 250 ML IV SCH ×2 (06:47→16:46)
[2018-04-11] MEDS: SODIUM CHLORIDE 0.9% 1000ML 1,000 ML IV SCH ×2 (06:49→18:34)
[2018-04-11] MEDS ORDERED: BETAMETHASONE DISODIUM PHOS 6 MG/ML VIAL ONE (06:52)
[2018-04-11] MEDS ORDERED: BUPIVACAINE HCL 0.5% INJ 30 ML VIAL INJ ONE (06:52)
[2018-04-11] MEDS ORDERED: LIDOCAINE HCL 1% LOCAL INJ 20 ML VIAL ONE (06:52)
[2018-04-11] MEDS ORDERED: BACITRACIN 50,000 UNIT VIAL ONE (06:53)
[2018-04-11] MEDS ORDERED: MUPIROCIN 2% OINT 22 GM TUBE ONE (07:50)
--- NOTE | 2018-04-11 09:15 | Operative Report ---
DATE OF PROCEDURE: April 11, 2018 PREOPERATIVE DIAGNOSIS: Abscess/ulceration, dorsal aspect, right foot. POSTOPERATIVE DIAGNOSIS: Abscess/ulceration, dorsal aspect, right foot. OPERATIVE PROCEDURE: Debridement of abscess and ulcer down to bone. ANESTHESIA: General. HEMOSTASIS: Pneumatic thigh tourniquet at 350 mmHg. PROCEDURE IN DETAIL: Patient was taken into the operating room and placed on the operating room table in supine position. Following induction of general anesthesia by the anesthesiologist, Webril wraps were placed around the patient's right thigh followed by application of a right thigh tourniquet. The right lower extremity was then prepped and draped in the usual aseptic manner. The following procedure was then performed: Procedure #1: Debridement of abscess and ulcer down to bone. Attention was directed to the dorsal aspect of the right foot where a linear incision was performed approximately 1 inch. Purulent drainage was drained and cultures for aerobic and anaerobic growth. Via the use of a sharp sterile 10 blade and a curette, the necrotic tissue was removed down to the metatarsal shaft and scraped via the curette. At this time, the pulse lavage utilizing 3000 mL of saline mixed with 50,000 units of Bacitracin was used to cleanse the ulceration. At this point, the thigh tourniquet was then removed, and all necrotic tissue was once again debrided until good, bleeding, viable tissue was achieved. Then approximately 10 mL of 0.5% plain Marcaine was used to achieve local anesthesia of the above-mentioned surgical area plus 3 mL of 1% Xylocaine plain. Dressing was applied with diluted wet-to-dry Betadine mixed with antibiotic solution. The patient was then transferred from the OR to the recovery room with vital signs stable and neurovascular status intact. No intraoperative complications were encountered. Blood loss from the surgery was minimal. Patient will remain in the hospital until tomorrow getting IV antibiotics. Possible discharge will be tomorrow. Patient informed if he keeps on doing what he is doing, he will end up eventually losing his legs. Job#: [id number]
--- NOTE | 2018-04-11 09:51 | Diagnostic Imaging Report ---
PROCEDURE:X-RAY RIGHT FOOT, TWO VIEWS COMPARISON:Patients [facility], CT, CT FOOT RIGHT W, 04/09/2018, 16:55. INDICATIONS:POST OPERATIVE RIGHT FOOT SURGERY FINDINGS: There are no fractures, dislocations, lytic or blastic lesions. Diffuse soft tissue swelling of the dorsal aspect of the foot. The bones are well-mineralized. CONCLUSION: Soft tissue swelling. Mac Lynn D.O. Dictated by: Mac Lynn D.O. on 04/11/2018 at 10:00 Electronically approved by: Mac Lynn D.O. on 04/11/2018 at 10:00
[2018-04-11 10:37] LABS: BASOPHILS # (AUTO) 0.1 (0.0-0.1); BASOPHILS % 0.7 % (0.0-1.0); EOSINOPHILS # (AUTO) 0.1 (0.0-0.4); EOSINOPHILS % 1.9 % (0.0-6.0); HEMATOCRIT 40.7 % (38.2-49.6); HEMOGLOBIN 13.8 g/dL (14.0-18.0); LYMPHOCYTES # (AUTO) 0.8 (1.0-3.2); LYMPHOCYTES % 11.7 % (18.0-39.1); MEAN CORPUSCULAR HEMOGLOBIN 28.9 pg (28-32); MEAN CORPUSCULAR HGB CONC 33.9 g/dL (31-35); MEAN CORPUSCULAR VOLUME 85.3 fL (81-99); MONOCYTES # (AUTO) 0.1 (0.2-0.8); MONOCYTES % 1.3 % (4.4-11.3); NEUTROPHILS # (AUTO) 5.8 (2.1-6.9); NEUTROPHILS % 83.8 % (38.7-80.0); PLATELET COUNT 267 x10e3/uL (140-360); RED BLOOD COUNT 4.77 x10e6/uL (4.3-5.7); RED CELL DISTRIBUTION WIDTH 12.3 % (11.7-14.4)
[2018-04-11] MEDS: NICOTINE 21 MG/EA PATCH TOP SCH (10:38)
[2018-04-11] MEDS: METHADONE HCL 10 MG TAB PO SCH (10:38)
[2018-04-11] MEDS: FLUTICASONE PROPIONATE NASAL SPRAY NS SCH ×2 (10:39→16:43)
[2018-04-11 10:55] LABS: BLOOD UREA NITROGEN 13 mg/dL (7-26); BUN/CREATININE RATIO 13 (6-25); CALCIUM 9.6 mg/dL (8.4-10.2); CARBON DIOXIDE 27 mmol/L (22-29); CHLORIDE 98 mmol/L (98-107); CREATININE, SERUM 0.99 mg/dL (0.72-1.25); EST GLOMERULAR FILTRATION RATE > 60 ML/MIN (60-); GLUCOSE 183 mg/dL (74-118); SODIUM 134 mmol/L (136-145)
[2018-04-11 11:23] VITALS: BP 136/68
[2018-04-11 15:45] VITALS: BP 119/73
[2018-04-11] MEDS ORDERED: SEVOFLURANE INHAL SOLN 250 ML PEN BTL ONE (19:25)
[2018-04-11] MEDS ORDERED: LIDOCAINE HCL 2% LOCAL INJ 5 ML SDV VIAL INJ ONE (19:25)
[2018-04-11] MEDS ORDERED: PROPOFOL IV EMULSION 10 MG/ML 20 ML VIAL ONE (19:25)
[2018-04-11] MEDS ORDERED: MIDAZOLAM HCL 2 MG/2 ML VIAL ONE (19:25)
[2018-04-11] MEDS ORDERED: ONDANSETRON HCL INJ 2 MG/ML VIAL ONE (19:25)
[2018-04-11] MEDS ORDERED: DEXAMETHASONE SOD PHOS INJ 4 MG/ML VIAL ONE (19:25)
[2018-04-11] MEDS ORDERED: FENTANYL CITRATE/PF 100MCG/2 ML INJ ONE (19:25)
[2018-04-11 20:00] VITALS: BP 135/74
[2018-04-11 22:08] VITALS: BP 135/74
[2018-04-12] VITALS: BP 120/72
[2018-04-12] MEDS: PIPER-TAZ 3.375 GM 50 ML IV SCH ×2 (00:20→05:38)
[2018-04-12] MEDS: SODIUM CHLORIDE 0.9% 1000ML 1,000 ML IV SCH (02:49)
[2018-04-12 04:00] VITALS: BP 121/72
[2018-04-12] MEDS: VANCOMYCIN 1GM/NS 250 ML 250 ML IV SCH (06:30)
[2018-04-12 07:53] VITALS: BP 100/49
[2018-04-12 08:51] VITALS: BP 100/49
[2018-04-12] MEDS: METHADONE HCL 10 MG TAB PO SCH (08:51)
[2018-04-12] MEDS: NICOTINE 21 MG/EA PATCH TOP SCH (08:51)
[2018-04-12] MEDS: FLUTICASONE PROPIONATE NASAL SPRAY NS SCH (08:51)
[2018-04-12 12:13] VITALS: BP 134/75
[2018-04-12] MEDS ORDERED: DOXYCYCLINE HY100 MG PO (13:57)
--- NOTE | 2018-04-12 14:06 | Progress Note ---
DATE: April 12, 2018 ORTHOPEDIC PROGRESS NOTE SUBJECTIVE: Patient doing significantly better. Denies any history of fever, chills, nausea, or vomiting. OBJECTIVE VITAL SIGNS: Afebrile. Pulse rate 70, respirations 18, blood pressure 134/75. O2 saturation 94%. Labs noted. Has a white blood cell count of 6.86. Hemoglobin 13.8. Cellulitis to the right foot significantly decreased, minimal pain. ASSESSMENT: Cellulitis with status post debridement down to bone. PLAN: Okay to go home. Prescription for doxycycline was given per Dr. Dumont. Patient instructed to follow up. Will try to get home health to go see him at home. Patient instructed to stay off any types of drugs that could potentially lead to infections and amputation of limbs. Patient will be seen within the next 2 weeks in the office. Job#: [id number] EV
--- NOTE | 2018-04-12 16:22 | Discharge Summary ---
DISCHARGE DIAGNOSIS: 1. Cellulitis and tenosynovitis of the dorsum of the right foot with abscess formation and sepsis present on admission. 2. Chronic pain requiring methadone maintenance. 3. History of prior bilateral hip replacements. RADIOGRAPHIC DATA: CT scan of the foot shows abscess in the dorsum of the foot with surrounding cellulitis and inflammation of the tendon of the extensor digitorum longus. There is no CT evidence of osteomyelitis. Chest x-ray shows no active disease. CONSULTING PHYSICIANS: 1. Dr. José Mattson of podiatry. 2. Dr. May Dumont of infectious disease. HISTORY OF PRESENT ILLNESS: The patient is a 38-year-old man. He has a history of methadone maintenance for prior drug dependence. He came in complaining of pain and swelling of the right foot for 4 days after a self-inflicted wound. HOSPITAL COURSE: The patient was admitted. He was started on IV antibiotics. He had blood cultures as well as wound cultures. He subsequently was seen by Podiatry. He had a debridement of the wound. He subsequently received wound care and physical therapy. The patient continued to improve. He was afebrile, and his white blood cell count returned to normal. The blood cultures were negative, and there was no evidence of osteomyelitis. He was subsequently discharged home on oral antibiotics. DISPOSITION: The patient will follow up with Dr. Dumont and with Dr. José Mattson. MELIZA ONEAL MD Job#: [id number] EV
== END 2018-04-12 14:02 | disposition home or self-care (01) | DRG 854 ==
LOC: ER 16:21 → ERHOLD 19:10 → MED/SURG2 19:50
PROVIDERS: ADMIT Internal Medicine Critical Care Medicine; ATTEND Internal Medicine Critical Care Medicine
PROC: 0JBQ0ZZ Excision of Right Foot Subcutaneous Tissue and Fascia, Open Approach (ICD-10-PCS; principal; 2018-04-11 07:30)
DX: A41.9 Sepsis, unspecified organism (principal); L03.115 Cellulitis of right lower limb; L02.611 Cutaneous abscess of right foot; F11.20 Opioid dependence, uncomplicated; L97.519 Non-pressure chronic ulcer of other part of right foot with unspecified severity; M65.9 Synovitis and tenosynovitis, unspecified; N18.9 Chronic kidney disease, unspecified; Z91.048 Other nonmedicinal substance allergy status; Z96.643 Presence of artificial hip joint, bilateral; K21.9 Gastro-esophageal reflux disease without esophagitis; E66.9 Obesity, unspecified; Z68.37 Body mass index [BMI] 37.0-37.9, adult; R53.81 Other malaise
CPT/HCPCS: 36415; 36569; 71045; 71046; 80048; 80053; 80202; 83605; 85025; 86592; 87040; 87071; 87075; 87186; 87205; 87390; 90714; 93005; 99284; G0433; G0435; J0692; J0720; J1100; J2001; J2250; J2405; J2543; J2997; J3370; J7030; J7050; Q9967

== ENCOUNTER 2018-06-23 15:37 | Emergency (ER) | payer MEDICARE ==
[~2018-06-23] VITALS: Ht 180.3 cm; Wt 68.0 kg
[~2018-06-23 15:37] MED LIST changes: +DOXYCYCLINE HY100 MG PO
--- OUTSIDE RECORDS SUMMARY | 2018-06-23 15:40 | XMS REPORT | Clinical Summary ---
Author Author DEBBI [facility] Address Unknown Phone Unavailable Care Team Providers Care Administration Intern Name Role Phone Sharpless PCP Allergies Comments [...] Lot Implanted Type Area Manufactur er 12/20/2024 [id number] / / [id number] Acet Shell,Continuum Multihole 56kk Joints Left: Hip [employer] - [id number] Implanted: Qty: 1 on 07/16/2015 by Kuldip Kelly Jr., MD 04/21/2025 [id number] / / [id number] Screw,Bone Selftap 6.5x25mm - Joints Left: Hip [employer] [id number] Implanted: Qty: 1 on 07/16/2015 by Kuldip Kelly Jr., MD 03/22/2025 [id number] / / [id number] Screw,Bone Selftap 6.5x25mm - Joints Left: Hip [employer] [id number] Implanted: Qty: 1 on 07/16/2015 by Kuldip Kelly Jr., MD 01/21/2020 [id number] / / [id number] Liner Trilogy Constr Sz Kk Joints Left: Hip GUILLERMO:ZIM 27-0609-256-32 - [id number] STEFAN US Implanted: Qty: 1 on 07/16/2015 by Kuldip Kelly Jr., MD 10/20/202493-9332-197-02 / / [id number] Head Fem Ceram Biolox Delta 36 Joints Left: Hip GUILLERMO:ZIM 66-2126-195-02 - [id number] STEFAN US Implanted: Qty: 1 on 07/16/2015 by Kuldip Kelly Jr., MD 04/21/2025 [id number] / / [id number] Neck,Modular G 05/05 Kinectiv - Joints Left: Hip [employer] [id number] Implanted: Qty: 1 on 07/16/2015 by Kuldip Kelly Jr., MD 03/22/2025 [id number] / / [id number] Stem Ml-Tpr Kinectv Sz-10.0 - Joints Left: Hip GUILLERMO:ZIM [id number] STEFAN US Implanted: Qty: 1 on 07/16/2015 by Kuldip Kelly Jr., MD Results Not on fileafter 06/22/2017 Insurance Payer Benefit Subscriber ID Type Phone Address Plan / Group [facility] - AARP/MEDIC xxxxxxxxx MEDICARE MGD CARE ARE COMPLETE Advance Directives For more information, please contact: [facility] [address] [place] [address] [phone] Date Inactivated Comments Code Status Date Activated 07/16/2015 9:47 PM Full Code 07/16/2015 10:40 AM This code status was determined by: Patient
--- NOTE | 2018-06-23 17:05 | Diagnostic Imaging Report ---
EXAMINATION: PA and lateral views of the chest. COMPARISON: None CLINICAL HISTORY: Chest pain DISCUSSION: Lines/tubes: None. Lungs: The lungs are well inflated and clear. No pneumonia or pulmonary edema. Pleura: No pleural effusion or pneumothorax. Heart and mediastinum: The cardiomediastinal silhouette is normal. Bones and soft tissues: No acute bony abnormalities. IMPRESSION: No acute cardiopulmonary abnormalities. Signed by: Dr. Maurice Thomas M.D. on 06/23/2018 5:02 PM
== END 2018-06-23 18:57 | disposition home or self-care (01) ==
LOC: ER 15:37
DX: R07.89 Other chest pain (principal); K21.0 Gastro-esophageal reflux disease with esophagitis; F17.210 Nicotine dependence, cigarettes, uncomplicated
CPT/HCPCS: 71046; 93005; 99283

== ENCOUNTER 2018-09-05 14:21 | Inpatient (IN) | payer MEDICARE ==
[~2018-09-05] VITALS: Ht 180.3 cm; Wt 121.6 kg
--- OUTSIDE RECORDS SUMMARY | 2018-09-05 14:24 | XMS REPORT | Clinical Summary ---
Author Author DEBBI [facility] Address Unknown Phone Unavailable Care Team Providers Care Metrology Engineer Name Role Phone Sharpless PCP Allergies Comments [...] Lot Implanted Type Area Manufactur er 12/20/2024 [id number] / / [id number] Acet Shell,Continuum Multihole 56kk Joints Left: Hip [employer] - [id number] Implanted: Qty: 1 on 07/16/2015 by Kuldip Kelly Jr., MD 04/21/2025 [id number] / / [id number] Screw,Bone Selftap 6.5x25mm - Joints Left: Hip [employer] [id number] Implanted: Qty: 1 on 07/16/2015 by Kuldip Kelly Jr., MD 03/22/2025 [id number] / / [id number] Screw,Bone Selftap 6.5x25mm - Joints Left: Hip [employer] [id number] Implanted: Qty: 1 on 07/16/2015 by Kuldip Kelly Jr., MD 01/21/2020 [id number] / / [id number] Liner Trilogy Constr Sz Kk Joints Left: Hip GUILLERMO:ZIM 19-4162-015-32 - [id number] STEFAN US Implanted: Qty: 1 on 07/16/2015 by Kuldip Kelly Jr., MD 10/20/202457-5596-301-02 / / [id number] Head Fem Ceram Biolox Delta 36 Joints Left: Hip GUILLERMO:ZIM 05-0592-086-02 - [id number] STEFAN US Implanted: Qty: 1 on 07/16/2015 by Kuldip Kelly Jr., MD 04/21/2025 [id number] / / [id number] Neck,Modular G 05/05 Kinectiv - Joints Left: Hip [employer] [id number] Implanted: Qty: 1 on 07/16/2015 by Kuldip Kelly Jr., MD 03/22/2025 [id number] / / [id number] Stem Ml-Tpr Kinectv Sz-10.0 - Joints Left: Hip GUILLERMO:ZIM [id number] STEFAN US Implanted: Qty: 1 on 07/16/2015 by Kuldip Kelly Jr., MD Results Not on fileafter 09/04/2017 Insurance Payer Benefit Subscriber ID Type Phone Address Plan / Group [facility] - AARP/MEDIC xxxxxxxxx MEDICARE MGD CARE ARE COMPLETE Advance Directives For more information, please contact: [facility] [address] [place] [address] [phone] Date Inactivated Comments Code Status Date Activated 07/16/2015 9:47 PM Full Code 07/16/2015 10:40 AM This code status was determined by: Patient
[2018-09-05] MEDS ORDERED: SODIUM CHLORIDE 0.9% 1000ML 1,000 ML IV STA (14:53)
[2018-09-05] MEDS ORDERED: VANCOMYCIN 1GM/NS 250 ML 250 ML IV STA (14:53)
[2018-09-05] MEDS ORDERED: PIPER-TAZ 3.375 GM 50 ML IV STA (15:00)
[2018-09-05 15:42] LABS: AMPHETAMINES SCREEN,URINE NEGATIVE (NEGATIVE); PHENCYCLIDINE SCREEN,URINE NEGATIVE (NEGATIVE)
[2018-09-05 15:43] LABS: BENZODIAZEPINES SCREEN,URINE NEGATIVE (NEGATIVE)
[2018-09-05 15:50] LABS: BASOPHILS # (AUTO) 0.1 (0.0-0.1); BASOPHILS % 0.6 % (0.0-1.0); EOSINOPHILS # (AUTO) 0.3 (0.0-0.4); EOSINOPHILS % 2.1 % (0.0-6.0); HEMATOCRIT 42.1 % (38.2-49.6); HEMOGLOBIN 14.3 g/dL (14.0-18.0); LYMPHOCYTES % 17.2 % (18.0-39.1); MEAN CORPUSCULAR HEMOGLOBIN 29.3 pg (28-32); MEAN CORPUSCULAR VOLUME 86.3 fL (81-99); MONOCYTES # (AUTO) 0.8 (0.2-0.8); MONOCYTES % 6.6 % (4.4-11.3); NEUTROPHILS # (AUTO) 8.5 (2.1-6.9); NEUTROPHILS % 72.4 % (38.7-80.0); PLATELET COUNT 344 x10e3/uL (140-360); RED BLOOD COUNT 4.88 x10e6/uL (4.3-5.7)
[2018-09-05 16:09] LABS: ALANINE AMINOTRANSFERASE 20 IU/L (0-55); ALBUMIN 3.4 g/dL (3.5-5.0); ALBUMIN/GLOBULIN RATIO 0.7 (0.8-2.0); ALKALINE PHOSPHATASE 92 IU/L (40-150); ANION GAP 13.1 mmol/L (8-16); BLOOD UREA NITROGEN 15 mg/dL (7-26); BUN/CREATININE RATIO 17 (6-25); CALCIUM 9.6 mg/dL (8.4-10.2); CARBON DIOXIDE 26 mmol/L (22-29); CHLORIDE 101 mmol/L (98-107); CREATINE KINASE 128 IU/L (30-200); EST GLOMERULAR FILTRATION RATE > 60 ML/MIN (60-); GLUCOSE 123 mg/dL (74-118); LIPASE 12 U/L (8-78); MAGNESIUM 2.3 MG/DL (1.3-2.1); POTASSIUM 4.1 mmol/L (3.5-5.1); SODIUM 136 mmol/L (136-145)
--- NOTE | 2018-09-05 16:14 | Diagnostic Imaging Report ---
EXAM: CHEST 2 VIEWS DATE: 09/05/2018 2:53 PM INDICATION: Infection in neck COMPARISON: Chest x-ray, 06/23/2018 FINDINGS: Lines and tubes: None Heart size normal. No focal pulmonary opacity, pleural effusion or pneumothorax. Upper abdomen unremarkable. No acute bony abnormality. Again noted mild kyphosis of thoracolumbar spine with degenerative changes. IMPRESSION: No evidence for acute disease. Signed by: Dr. Oli Campos M.D. on 09/05/2018 4:10 PM
[2018-09-05] MEDS ORDERED: TETANUS/DIPHTHERIA TOX ADULT 0.5 ML SYR IM ONE (16:30)
--- NOTE | 2018-09-05 16:40 | NUR ---
RIGHT AC IV INFILTRATED, IV ANTIBIOTICS AND FLUIDS STOPPED, REDNESS AND SWELLING NOTED TO IV SITE. NOTIFIED Raquel COWAN NP. IV D/C, CATHTHER INTACT, DRESSING APPLIED, BLEEDING CONTROLLED, DRY AND INTACT. NO SIGNS OF ACUTE DISTRESS NOTED AT THIS TIME.
[2018-09-05] MEDS ORDERED: CLINDAMYCIN PHOS 600 MG/ 4 ML VIAL IM ONE (17:45)
[2018-09-05 18:06] LABS: INR 0.85; PROTHROMBIN TIME 12.1 seconds (11.9-14.5)
[2018-09-05 18:07] LABS: PARTIAL THROMBOPLASTIN TIME 40.5 seconds (23.8-35.5)
--- NOTE | 2018-09-05 18:51 | NUR ---
CONSENT ON CHART. TALKED WITH CATHRYN AND PICC LINE RN ON WAY
--- NOTE | 2018-09-05 21:19 | Diagnostic Imaging Report ---
EXAMINATION: CHEST XRAY LINE PLACEMENT COMPARISON: 09/05/2018 at 1547 hours INDICATION: ^picc line insert ^[id number] ^2019 DISCUSSION: Frontal view of the chest obtained at 8 hours. HEART AND MEDIASTINUM: The cardiomediastinal silhouette is unremarkable. LINES: Right PICC line terminates in the SVC without pneumothorax. LUNGS: The lungs are well inflated and clear. No pneumonia or pulmonary edema. PLEURA: No pleural effusion or pneumothorax. BONES AND SOFT TISSUES: No focal osseous lesion. The soft tissues are normal. IMPRESSION: Right PICC line as described above. No pneumothorax. No new cardiopulmonary process. Signed by: Dr. Sridevi Almendarez MD on 09/05/2018 9:16 PM
--- NOTE | 2018-09-05 22:09 | Diagnostic Imaging Report ---
History: Left neck pain and swelling, started 2 weeks ago after injecting heroin in the neck. Comparison studies: None Technique: Axial, coronal and sagittal images from the skull base to the thoracic inlet. Coronal and sagittal images reconstructed from the axial data. Dose modulation, iterative reconstruction, and/or weight based adjustment of the mA/kV was utilized to reduce the radiation dose to as low as reasonably achievable. Intravenous contrast: 100 cc of Isovue 370. Findings: Soft tissues: Subcutaneous soft tissue inflammatory changes that extends to the deep neck spaces centered in left supraclavicular region/inferior aspect of posterior triangle of the neck, with ill-defined focal hypodensity with peripheral rim enhancement that approximately measures 2.8 x 2.2 x 3 cm (SAT) with intrinsic foci of air, posterior and lateral to left sternocleidomastoid muscle. Asymmetric thickening of left platysma. The airway is patent. Lymph nodes: Enlarged nonnecrotic, noncalcified left periparotid lymph node just along the inferior and posterior margin of left parotid gland, approximately measures 1 cm in long axis. Prominent nonnecrotic, noncalcified lymph node in left level 4, approximately measures 9.7 mm in long axis. Vessels: Arteries and veins are patent. Glands (thyroid, parotid and submandibular): Normal in size and symmetric. No masses. Orbits: No abnormalities. Paranasal sinuses: Clear. Temporal bones: No abnormalities. Skull base and facial bones: Intact. Cervical spine: C3-C4: Mild right and moderate left foraminal stenosis due to facet and uncovertebral arthrosis. C4-C5: Mild right foraminal stenosis due to facet and uncovertebral arthrosis. C5-C6: Moderate bilateral foraminal stenosis due to facet and uncovertebral arthrosis. C6-C7: Moderate bilateral foraminal stenosis due to facet and uncovertebral arthrosis. Posterior disc osteophyte complex results in mild to moderate canal stenosis. Incidental finding: Multiple missing teeth. IMPRESSION: 1. Moderate soft tissue cellulitis in the inferior aspect of posterior triangle/supraclavicular neck with 2.8 cm soft tissue abscess with intrinsic air foci, raises concern for anaerobic infection/necrotizing fascitis. 2. Enlarged left periparotid and prominent left level 4 lymph nodes are likely reactive. Signed by: Dr. Nga Jaime M.D. on 09/05/2018 10:05 PM
[2018-09-05] MEDS ORDERED: SODIUM CHLORIDE 0.9% 50ML 50 ML ONE (22:20)
[2018-09-05] MEDS ORDERED: IOPAMIDOL 370 MG/ML 200 ML INFUS..BTL INJ ONE (22:20)
[2018-09-05] MEDS ORDERED: VANCOMYCIN 1GM/NS 250 ML 250 ML IV SCH (22:45)
[2018-09-05] MEDS ORDERED: ACETAMINOPHEN 1000 MG/100 ML IV PRN (22:45)
[2018-09-05] MEDS ORDERED: ONDANSETRON HCL INJ 2MG/ML 2ML 2 MG/ML VIAL IV PRN (22:45)
--- OUTSIDE RECORDS SUMMARY | 2018-09-05 22:56 | XMS REPORT | Clinical Summary ---
Author Author DEBBI [facility] Address Unknown Phone Unavailable Care Team Providers Care Security Attendant Name Role Phone Sharpless PCP Allergies Comments [...] Lot Implanted Type Area Manufactur er 12/20/2024 [id number] / / [id number] Acet Shell,Continuum Multihole 56kk Joints Left: Hip [employer] - [id number] Implanted: Qty: 1 on 07/16/2015 by Kuldip Kelly Jr., MD 04/21/2025 [id number] / / [id number] Screw,Bone Selftap 6.5x25mm - Joints Left: Hip [employer] [id number] Implanted: Qty: 1 on 07/16/2015 by Kuldip Kelly Jr., MD 03/22/2025 [id number] / / [id number] Screw,Bone Selftap 6.5x25mm - Joints Left: Hip [employer] [id number] Implanted: Qty: 1 on 07/16/2015 by Kuldip Kelly Jr., MD 01/21/2020 [id number] / / [id number] Liner Trilogy Constr Sz Kk Joints Left: Hip GUILLERMO:ZIM 55-8345-493-32 - [id number] STEFAN US Implanted: Qty: 1 on 07/16/2015 by Kuldip Kelly Jr., MD 10/20/202489-2190-782-02 / / [id number] Head Fem Ceram Biolox Delta 36 Joints Left: Hip GUILLERMO:ZIM 38-4029-444-02 - [id number] STEFAN US Implanted: Qty: 1 on 07/16/2015 by Kuldip Kelly Jr., MD 04/21/2025 [id number] / / [id number] Neck,Modular G 05/05 Kinectiv - Joints Left: Hip [employer] [id number] Implanted: Qty: 1 on 07/16/2015 by Kuldip Kelly Jr., MD 03/22/2025 [id number] / / [id number] Stem Ml-Tpr Kinectv Sz-10.0 - Joints Left: Hip GUILLERMO:ZIM [id number] STEFAN US Implanted: Qty: 1 on 07/16/2015 by Kuldip Kelly Jr., MD Results Not on fileafter 09/04/2017 Insurance Payer Benefit Subscriber ID Type Phone Address Plan / Group [facility] - AARP/MEDIC xxxxxxxxx MEDICARE MGD CARE ARE COMPLETE Advance Directives For more information, please contact: [facility] [address] [place] [address] [phone] Date Inactivated Comments Code Status Date Activated 07/16/2015 9:47 PM Full Code 07/16/2015 10:40 AM This code status was determined by: Patient
[2018-09-05] MEDS: PIPER-TAZ 3.375 GM 50 ML IV SCH (23:25)
[2018-09-05] MEDS: MORPHINE SULFATE INJ 4 MG/ML INJ 1ML IV PRN (23:40)
[2018-09-06] VITALS (7 sets, daily range): BP systolic 133–153; BP diastolic 65–97
--- NOTE | 2018-09-06 01:39 | NUR ---
PAGE DR ARRINGTON FOR ORDERS. AWAITING CALL BACK
[2018-09-06] MEDS ORDERED: ALBUTEROL/IPRATROPIUM 3 ML NEB NEB PRN (02:00)
[2018-09-06] MEDS ORDERED: SODIUM CHLORIDE 0.9% 250ML 250 ML ONE (02:03)
[2018-09-06] MEDS: VANCOMYCIN 1GM/NS 250 ML 250 ML IV SCH ×2 (02:11→14:59)
[2018-09-06] MEDS: MORPHINE SULFATE INJ 4 MG/ML INJ 1ML IV PRN ×3 (05:00→19:40)
[2018-09-06] MEDS: PIPER-TAZ 3.375 GM 50 ML IV SCH ×3 (05:38→22:36)
[2018-09-06 06:39] LABS: BASOPHILS # (AUTO) 0.1 (0.0-0.1); BASOPHILS % 0.9 % (0.0-1.0); EOSINOPHILS # (AUTO) 0.4 (0.0-0.4); EOSINOPHILS % 3.3 % (0.0-6.0); HEMATOCRIT 37.1 % (38.2-49.6); HEMOGLOBIN 12.4 g/dL (14.0-18.0); LYMPHOCYTES # (AUTO) 2.5 (1.0-3.2); LYMPHOCYTES % 22.7 % (18.0-39.1); MEAN CORPUSCULAR HEMOGLOBIN 29.1 pg (28-32); MEAN CORPUSCULAR HGB CONC 33.4 g/dL (31-35); MEAN CORPUSCULAR VOLUME 87.1 fL (81-99); MONOCYTES % 9.4 % (4.4-11.3); NEUTROPHILS # (AUTO) 6.8 (2.1-6.9); NEUTROPHILS % 62.4 % (38.7-80.0); PLATELET COUNT 303 x10e3/uL (140-360); RED BLOOD COUNT 4.26 x10e6/uL (4.3-5.7); RED CELL DISTRIBUTION WIDTH 12.2 % (11.7-14.4)
[2018-09-06 07:01] LABS: ALANINE AMINOTRANSFERASE 17 IU/L (0-55); ALBUMIN/GLOBULIN RATIO 0.7 (0.8-2.0); ALKALINE PHOSPHATASE 79 IU/L (40-150); BLOOD UREA NITROGEN 17 mg/dL (7-26); BUN/CREATININE RATIO 20 (6-25); CARBON DIOXIDE 28 mmol/L (22-29); CHLORIDE 102 mmol/L (98-107); CREATININE, SERUM 0.85 mg/dL (0.72-1.25); EST GLOMERULAR FILTRATION RATE > 60 ML/MIN (60-); GLUCOSE 110 mg/dL (74-118); SODIUM 137 mmol/L (136-145)
[2018-09-06] MEDS ORDERED: BUPIVACAINE 0.5%/EPI 30 ML SDV INJ ONE (08:56)
--- NOTE | 2018-09-06 09:00 | NUR ---
Pt went for ID of left neck abcess at this time. Pt aox4 and able to verbalize needs.
--- NOTE | 2018-09-06 09:17 | Consultation ---
DATE OF CONSULTATION: 09/06/2018 CHIEF COMPLAINT: Neck abscess. HISTORY OF PRESENT ILLNESS: The patient is a 38-year-old male with known history of IV drug use, who injected his neck area in the last several days and noted increased swelling and redness in the neck with increasing pain. He denies shortness of breath, but admits to some subjective fever and chills. PAST MEDICAL HISTORY: Negative except for IV drug use. PAST SURGICAL HISTORY: Bilateral hip surgery. ALLERGIES: HE IS ALLERGIC TO NO DRUGS, BUT TO ADHESIVE TAPE. SOCIAL HISTORY: IV drug use. No smoking OR alcohol abuse. REVIEW OF SYSTEMS: No chest pain or shortness of breath. PHYSICAL EXAMINATION: VITAL SIGNS: Stable, afebrile. GENERAL: The patient is awake, alert, in moderate discomfort. HEENT: Sclera nonicteric. NECK: Supple. There is area of redness, swelling, and tenderness in the left supraclavicular area with no fluctuance. LUNGS: Clear. HEART: Regular rate and rhythm. ABDOMEN: Soft. EXTREMITIES: No cyanosis or edema. LABORATORY DATA: White cell count is 10.8, hemoglobin of 12. Creatinine 0.8. CT of the neck showed soft tissue abscess in the upper neck area concerning for necrotizing fasciitis. ASSESSMENT: Neck abscess, possible fasciitis. PLAN: Incision and drainage of neck abscess under anesthesia. Attendant risks discussed. Denton Kam MD DNHarpreet/MODL /[id number]
--- NOTE | 2018-09-06 10:00 | NUR ---
Pt returned for procedure at this time. Pt is aox4 and able to verbalize need. Pt has dressing to left neck and ii is dry and intact. Pt denies any pain at this time.
[2018-09-06] MEDS: METHADONE HCL 10 MG TAB PO SCH (11:44)
--- NOTE | 2018-09-06 12:59 | Operative Report ---
DATE OF PROCEDURE: 09/06/2018 SURGEON: Denton Kam MD PREOPERATIVE DIAGNOSIS: Left neck abscess. POSTOPERATIVE DIAGNOSIS: Left neck abscess. OPERATIVE PROCEDURE: Incision and drainage of left neck abscess. ANESTHESIA: General. INDICATIONS: A 38-year-old male with history of left neck abscess arising from injection of drugs. The patient consented for drainage of his neck abscess under anesthesia. DESCRIPTION OF PROCEDURE: The patient was brought to OR and intubated. The neck is prepped with alcohol and draped in sterile fashion on the left side. Local anesthesia of 0.5% Marcaine with epinephrine is injected into the skin and subcutaneous tissue at the projected site of drainage. An oblique incision is made along the natural skin crease on the left lateral neck in the supraclavicular area extending down to skin and subcu tissue. Using sharp and blunt dissection, the abscess cavity was entered proximally 2 to 3 cm from the skin surface and a large 3 x 4 cm abscess cavity is entered and thick purulent fluid is evacuated and swab specimen obtained for culture and sensitivity. We then irrigated the cavity with saline solution and placed a Romel drain. The wounds also packed tightly with iodoform gauze for hemostasis. Pressure dressing applied. The patient tolerated the procedure well, was awakened from anesthesia. Estimated blood loss was 5 mL. Denton Kam MD DNL/MODL /[id number]
[2018-09-06] MEDS ORDERED: MIDAZOLAM HCL 2 MG/2 ML VIAL ONE (14:06)
[2018-09-06] MEDS ORDERED: FENTANYL CITRATE/PF 100MCG/2 ML INJ ONE (14:06)
[2018-09-06] MEDS ORDERED: QUETIAPINE FUMARATE 25 MG TAB PO PRN (17:00)
[2018-09-06] MEDS ORDERED: HALOPERIDOL LACTATE 5 MG/ML VIAL IM PRN (17:00)
--- NOTE | 2018-09-06 17:38 | NUR ---
CASE MANAGEMENT INITIAL ASSESSMENT Recreation Technician to bedside to discuss plan of care with patient/family. CM/SW role and care transitions discussed. Anticipated discharge plan discussed along with duration of care. CM/SW discussed patients right to make decisions in care. CM/SW work hours given. Patient lives: ALONE IN DOWNSTAIRS APT. 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 IMM SIGNED. COPY TO PT AND COPY TO CHART. Goal for discharge: RETURN HOME. CM/SW left business card at the bedside with contact information. Name and number was also written on the patients whiteboard. Patient verbalized understanding of discussion. CM will follow-up with ongoing discharge and transition of care needs.
--- NOTE | 2018-09-06 18:00 | NUR ---
Went to pt room and pt had turned IV pump off while antibiotic is running. Educated pt that he should not turn off or disconnect IV, he should call nurse to disconnect or turn off IV. Pt verbalized understanding.
--- NOTE | 2018-09-06 19:10 | NUR ---
BS rounds completed with morning nurse. Pt alert to name. Lying in bed supine. Pt c/o 11/29 pain to neck, post I&D. Call rosales within reach. Bed low and locked. Will continue to monitor.
[2018-09-06] MEDS ORDERED: DEXAMETHASONE SOD PHOS INJ 4 MG/ML VIAL ONE (20:14)
[2018-09-06] MEDS ORDERED: ONDANSETRON HCL INJ 2MG/ML 2ML 2 MG/ML VIAL ONE (20:14)
[2018-09-06] MEDS ORDERED: ROCURONIUM BROMIDE 10 MG/ML 5ML VIAL ONE (20:14)
[2018-09-06] MEDS ORDERED: SUCCINYLCHOLINE 200 MG/10 ML SYR ONE (20:14)
[2018-09-06] MEDS ORDERED: SEVOFLURANE INHAL SOLN 250 ML PEN BTL ONE (20:14)
[2018-09-06] MEDS ORDERED: LIDOCAINE HCL 2% LOCAL INJ 5 ML SDV VIAL INJ ONE (20:14)
[2018-09-06] MEDS ORDERED: PROPOFOL IV EMULSION 10 MG/ML 20 ML VIAL ONE (20:14)
[2018-09-06] MEDS: QUETIAPINE FUMARATE 25 MG TAB PO SCH (21:32)
[2018-09-06] MEDS: DIVALPROEX SODIUM 250 MG TAB...DR PO SCH (21:32)
--- NOTE | 2018-09-06 23:37 | Consultation ---
DATE OF CONSULTATION: 09/06/2018 Psychiatric Consultation. REASON FOR CONSULTATION: To evaluate the patient's aggression and mood. HISTORY OF PRESENT ILLNESS: The patient is a 38-year-old male admitted to the hospital with abscess of neck and cellulitis of the neck. Psychiatric consultation was called to evaluate the patient's mood. As per medical record, the patient was admitted and seen by Medical due to a long history of IV drug use. He apparently injected his neck area and abscess oozing from this. Upon evaluation today, the patient is found to be lying in the bed. He is alert, awake, and oriented to situation. The patient states that he has been feeling depressed and very anxious due to the loss of his job. He admits to history of mood swings and aggression. He claims that his mother has history of bipolar. He denies any suicidal ideation or homicidal ideation. He denies any hallucination. He complained of poor sleep, but denies any appetite issues. He has no flight of ideas. Thought process is concrete. No delusion or paranoia. As per nursing staff, the patient has been doing better now that his methadone has been added. PAST MEDICAL HISTORY: The patient denies past psychiatric history. He denies past suicide attempts. He denies alcohol use. He admits to using heroin. UDS is also positive for amphetamine and cannabinoids and methadone. FAMILY HISTORY: Mother with bipolar. SOCIAL HISTORY: The patient states he lives with his . MENTAL STATUS EXAM: The patient is a young male. He is alert, awake, and oriented to situation. Mood is depressed, anxious, irritable. Psychomotor state is passive. He denies any suicidal or homicidal ideation. He denies any hallucination. Thought process is concrete. No delusion elicited. Insight and judgment not fair. Memory appears to be grossly intact. CURRENT MEDICATIONS: 1. Morphine p.r.n. 2. Vancomycin. 3. Zosyn. 4. Methadone 140 mg p.o. daily. 5. Acetaminophen. 6. Albuterol/ipratropium. 7. Ondansetron. 8. [place]. CURRENT LABS: WBC 10.88, RBC 4.26, hemoglobin 12.4, hematocrit 37.1, platelets 303. Sodium 137, potassium 4, chloride 102, CO2 of 28, BUN 17, creatinine 0.85. AST 19, ALT 17. UDS positive for methadone and methamphetamines, and cannabinoids. ASSESSMENT: 1. Adjustment disorder with mixed mood, depression, and anxiety. 2. Rule out bipolar. 3. Polysubstance abuse (amphetamine, cannabinoid). 4. Methadone use. PLAN: 1. Add Depakote 250 mg p.o. q.12 for mood swing. 2. Add Haldol 2 mg IM q.6 hours p.r.n. for agitation. 3. Add Seroquel 25 mg p.o. q.6 hours p.r.n. 4. Add Seroquel 50 mg p.o. at bedtime. 5. The patient is on methadone 140 mg p.o. daily as per medical. 6. Recommend to minimize as much as possible benzo's. 7. Supportive therapy. 8. Monitor for mood. Thank you for this consultation. Dictated by Kiki Moore PA-C Ping Moss MD QTV/MODL /[id number]
--- NOTE | 2018-09-06 23:52 | Consultation ---
DATE OF CONSULTATION: REASON FOR CONSULTATION: The patient has abscess on his shoulder. HISTORY OF PRESENT ILLNESS: This patient is a very pleasant 38-year-old white gentleman, who had history of abscess on the leg before, comes in with redness and swelling of his left shoulder. There is no trauma, started few days ago. He felt feverish. The patient had redness and swelling on the base of the neck and left shoulder. The patient was admitted. I was asked to see him. He underwent an I and D earlier. PAST MEDICAL HISTORY: He had abscess on the leg. SOCIAL HISTORY: There is no drug abuse or alcohol abuse. He smokes cigarettes. FAMILY HISTORY: Negative. REVIEW OF SYSTEMS: HEENT: Negative. PULMONARY: Negative. CARDIAC: Negative. : Negative. GI: Negative. SKIN: There is no rash. JOINT: No erythema or edema. LABORATORY DATA: Reviewed. Chart reviewed. PHYSICAL EXAMINATION: GENERAL: He is currently alert and oriented, does not seem to be in acute distress. VITAL SIGNS: Stable, afebrile. HEENT: Normocephalic. Not icteric. NECK: Supple. CHEST: Clear. HEART: S1, S2. No S3, S4, or murmur. ABDOMEN: Soft. Bowel sounds present. No tenderness. EXTREMITIES: No edema. The wound has a dressing on it. As mentioned above, he just had I and D earlier. IMPRESSION: Abscess at the base of the neck and left shoulder, status post I and D. Culture was sent. Agree with vancomycin and agree with Zosyn. Await culture and sensitivity. Recheck CBC. Recheck Chem panel. Discussed with the patient, answered all the questions. Time spent 60 minutes. MD ALEXIS Rebolledo/RAINER /[id number]
[2018-09-07] VITALS (7 sets, daily range): BP systolic 129–152; BP diastolic 72–97
--- NOTE | 2018-09-07 00:37 | History and Physical ---
CHIEF COMPLAINT: Neck pain and swelling. HISTORY OF PRESENT ILLNESS: Mr. Castro is a 38-year-old male, who presented to the emergency room with complaints of neck pain. The patient is an IV drug user, has been a heroin user for the last 20 years. Injected heroin two weeks ago in the left side of the neck and then he noticed increasing pain, swelling, and redness, so he came to the emergency room. In the emergency room, the patient underwent a soft tissue neck CT, which showed moderate soft tissue cellulitis in the inferior aspect of the posterior triangle, supraclavicular neck 2.8 cm soft tissue abscess with increasing air foci. The patient's concern of anaerobic infection and necrotizing fasciitis. Surgery was consulted and the patient underwent incision and drainage. The patient is doing well. REVIEW OF SYSTEMS: GENERAL: Was having fever. HEAD: Denies any head trauma. ENT: Denies any earache. CVS: Denies any chest pain. RESPIRATORY: Denies any shortness of breath. The rest of the review of systems are negative except as in HPI. 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 FAMILY AND SOCIAL HISTORY: He smokes cigarettes for 20 years. He is an IV heroin user. Denies any alcohol use. PHYSICAL EXAMINATION: VITAL SIGNS: Temperature 98.6, pulse is 70, blood pressure 138/82, respiratory rate of 18. HEENT: Head is atraumatic, normocephalic. NECK: On the patient's left side of neck, incision and drainage was done and there is dressing. CHEST: Clear to auscultation bilaterally. No wheezes. No crackles. HEART: S1, S2 audible. ABDOMEN: Soft, nontender. EXTREMITIES: No pedal edema. NEUROLOGIC: Awake and alert. LABORATORY DATA: White count of 10,000, was 11,000 yesterday, hemoglobin 12.4, platelets 303. Chemistries within normal limits. CT neck reviewed. The patient last time had MRSA in the foot, which was in March of 2018. The recent cultures are all pending. CT neck report reviewed. ASSESSMENT: Mr. Castro is a 38-year-old male, who has a history of IV drug use and the patient injected heroin resulting in left neck abscess. PLAN: 1. Surgical consult, status post I and D. Continue antibiotics. 2. Infectious Disease consultation with Dr. Dumont for IV antibiotic recommendations. I will also consult Dr. Franks, as the patient has addiction problem and needs psychiatric evaluation. 3. Resume the patient's antiepileptic medications. Nebulizer treatment as needed. Resume methadone. MD AGATHA Greco/RAINER /[id number]
[2018-09-07] MEDS: VANCOMYCIN 1GM/NS 250 ML 250 ML IV SCH ×2 (03:00→13:59)
[2018-09-07] MEDS ORDERED: SODIUM CHLORIDE 0.9% 250ML 250 ML ONE ×2 (04:05→21:19)
[2018-09-07] MEDS: MORPHINE SULFATE INJ 4 MG/ML INJ 1ML IV PRN (04:10)
[2018-09-07] MEDS: PIPER-TAZ 3.375 GM 50 ML IV SCH ×3 (06:44→21:28)
[2018-09-07] MEDS: METHADONE HCL 10 MG TAB PO SCH (09:02)
[2018-09-07] MEDS: DIVALPROEX SODIUM 250 MG TAB...DR PO SCH (09:02)
--- NOTE | 2018-09-07 10:00 | NUR ---
Dr. Kam was here this morning and removed some of the packing to incision to left neck. Drain remains in place. Area covered with gauze and tegaderm.
[2018-09-07] MEDS ORDERED: ONDANSETRON HCL 4 MG ORAL DISINTEGRATING TAB PO PRN (10:45)
--- NOTE | 2018-09-07 10:50 | NUR ---
WENT AND SPOKE WITH PATIENT ABOUT REPORTED SUBSTANCE USE. HE STATES THAT HE DOES NOT FEEL IT IS A PROBLEM, GAVE RESOURCES FOR HIM TO KEEP IF FEELS AT A LATER TIME HE WOULD USE. LEFT CARD AND LET HIM KNOW IF HE ANY QUESTION OR NEEDED FURTHER RESOURCES TO CONTACT IF HE HAS FURTHER QUESTIONS
[2018-09-07] MEDS ORDERED: DIATRIZOATE MEGL/DIATRIZOA SOD 30 ML BTL PO ONE (11:16)
[2018-09-07] MEDS: HYDROCODONE/APAP 7.5MG-325MG 1 EA TAB PO PRN (14:00)
[2018-09-07] MEDS: FAMOTIDINE 20 MG TAB PO SCH ×2 (14:04→22:45)
--- NOTE | 2018-09-07 16:00 | NUR ---
Pt continuously has been disconnecting himself from IV. Pt has been educated on multiple times that he should not disconnect himself from IV because of infection control. He verbalizes understanding but continuous to disconnect himself from IV. Pt has a PICC line to right upper arm.
--- NOTE | 2018-09-07 16:16 | Diagnostic Imaging Report ---
EXAM: CT Abdomen and Pelvis WITHOUT contrast INDICATION: Abdominal pain. COMPARISON: None. TECHNIQUE: Abdomen and pelvis were scanned utilizing a multidetector helical scanner from the lung base to the pubic symphysis without administration of IV contrast. Absence of intravenous contrast decreases sensitivity for detection of focal lesions and vascular pathology. Coronal and sagittal reformations were obtained. Routine protocol was performed. IV CONTRAST: None. ORAL CONTRAST: Gastrografin RADIATION DOSE: Total DLP: 913.9 mGy*cm Dose modulation, iterative reconstruction, and/or weight based adjustment of the mA/kV was utilized to reduce the radiation dose to as low as reasonably achievable. COMPLICATIONS: None FINDINGS: LINES and TUBES: None. LOWER THORAX: Calcified granuloma in the right lower lobe. Mild patchy atelectasis in the left lower lobe. HEPATOBILIARY: No focal hepatic lesions. No biliary ductal dilation. GALLBLADDER: No radio-opaque stones or sludge. No wall thickening. SPLEEN: No splenomegaly. PANCREAS: Fatty atrophy. No focal masses or ductal dilatation. ADRENALS: No adrenal nodules KIDNEYS/URETERS: No hydronephrosis. No cystic or solid mass lesions. No stones. GI TRACT: No abnormal distention, wall thickening, or evidence of bowel obstruction. Appendix is normal. Moderate amount of stool in the colon. PELVIC ORGANS/BLADDER: Streak artifact limits evaluation. LYMPH NODES: No lymphadenopathy. VESSELS: Unremarkable. PERITONEUM / RETROPERITONEUM: No free air or fluid. BONES: Status post bilateral total hip arthroplasties. SOFT TISSUES: Subcutaneous nodule versus injection site in the left anterior abdominal wall, measuring up to 1.1 cm. IMPRESSION: No acute noncontrast CT abnormality in the abdomen or pelvis. Signed by: Dr. Carlos Rasheed MD on 09/07/2018 4:13 PM
--- NOTE | 2018-09-07 16:41 | Progress Note ---
DATE: 09/07/2018 Psychiatric Progress Note SUBJECTIVE: The patient evaluated and events noted. The patient is in the room. He is sitting up. He is alert, awake, and oriented to situation. He reports feeling anxiety, having some depression. He reports intermittent sleep last night. He denies any hallucinations. He claims that he has started to experience muscle stiffness, which started today. ASSESSMENT: 1. Adjustment disorder with mixed mood, depression, anxiety. 2. Rule out bipolar. 3. Polysubstance abuse (amphetamine and cannabinoid). 4. Methadone use. PLAN OF TREATMENT: 1. Discontinue Depakote. 2. Continue with Haldol 2 mg IM q.6 hours p.r.n. 3. Continue with Seroquel 25 mg p.o. q.6 hours p.r.n. 4. Continue with Seroquel 50 mg p.o. at bedtime. 5. The patient is on methadone. 6. Minimize as much benzo as possible. 7. Supportive therapy. 8. Monitor for mood. Dictated by Kiki Moore PA-C Ping Moss MD QTV/MODL /[id number]
--- NOTE | 2018-09-07 16:49 | NUR ---
Nutrition Screen Note RD Recommendation for Physician: Continue diet as ordered Plan of Care: RD following, monitoring for adequacy and tolerance Nutrition reason for involvement: Nutrition Risk Trigger - MST Primary Diagnose(s):Neck abscess Ht:71 in Wt:260lbs BMI:36.3 kg/m2 IBW:172lbs RD Assessment:(09/07/2018) Initial encounter with patient. Pt denies any N,V, D, nor has any difficulty chewing or swallowing. Pt is eating well. Current Diet: Regular diet Malnutrition Evaluation (09/07/2018) The patient does not meet criteria for a specified degree of malnutrition at this time. Will re-evaluate at follow-up as appropriate. Diet Education Needs Assessment: Diet education not indicated. Diet Adequacy: Meeting calorie needs, Meeting protein needs, Meeting fluid needs Tolerance: Tolerating PO, Nutrition Care Level: Shawn Sultana RD, LD, [facility]
[2018-09-07] MEDS ORDERED: FAMOTIDINE 20 MG/2 ML VIAL IV SCH (17:00)
--- NOTE | 2018-09-07 19:15 | NUR ---
Completed BS rounds with morning nurse. Pt alert to name. Lying in bed supine. Pt c/o 01/30 pain to neck, day 1 post I&D, medicated with prn [place]. Drsg dry and intact, no s/s of infection. Call rosales within reach. Bed low and locked. Will continue to monitor.
[2018-09-07] MEDS: QUETIAPINE FUMARATE 25 MG TAB PO SCH (21:28)
[2018-09-08] VITALS (9 sets, daily range): BP systolic 132–166; BP diastolic 74–98
[2018-09-08] MEDS: HYDROCODONE/APAP 7.5MG-325MG 1 EA TAB PO PRN ×5 (00:45→22:20)
[2018-09-08] MEDS: VANCOMYCIN 1GM/NS 250 ML 250 ML IV SCH ×2 (02:00→14:54)
--- NOTE | 2018-09-08 05:50 | NUR ---
Pt continues to remove IV without nurse and causes double lumen sluggish flush. Purple lumen unable to flush. Paged Dr. Barrios for further treatment of sluggish PICC slush.
[2018-09-08] MEDS: PIPER-TAZ 3.375 GM 50 ML IV SCH ×3 (06:00→21:08)
[2018-09-08] MEDS ORDERED: SODIUM CHLORIDE 0.9% 250ML 250 ML ONE (06:23)
--- NOTE | 2018-09-08 07:30 | NUR ---
PATIENT IN STABLE CONDITION WITH NO S/S OF RESPIRATORY DISTRESS. PATIENT C/O OF NECK AND GENERALIZE PAIN 08/30. IV ANTIBIOTIC INFUSING. DRESSING TO PATIENT'S LEFT NECK SHOWS DRAINAGE. CALL LIGHT IS WITHIN REACH, PATIENT INSTRUCTED TO CALL FOR ASSISTANCE NEEDED.
[2018-09-08 07:43] LABS: BASOPHILS # (AUTO) 0.1 (0.0-0.1); BASOPHILS % 1.3 % (0.0-1.0); EOSINOPHILS # (AUTO) 0.3 (0.0-0.4); HEMATOCRIT 39.9 % (38.2-49.6); HEMOGLOBIN 13.3 g/dL (14.0-18.0); LYMPHOCYTES # (AUTO) 1.5 (1.0-3.2); LYMPHOCYTES % 28.8 % (18.0-39.1); MEAN CORPUSCULAR HEMOGLOBIN 29.4 pg (28-32); MEAN CORPUSCULAR HGB CONC 33.3 g/dL (31-35); MEAN CORPUSCULAR VOLUME 88.3 fL (81-99); MONOCYTES # (AUTO) 0.7 (0.2-0.8); MONOCYTES % 14.2 % (4.4-11.3); NEUTROPHILS # (AUTO) 2.4 (2.1-6.9); PLATELET COUNT 241 x10e3/uL (140-360); RED BLOOD COUNT 4.52 x10e6/uL (4.3-5.7); RED CELL DISTRIBUTION WIDTH 12.3 % (11.7-14.4)
[2018-09-08 07:54] LABS: ANION GAP 12.3 mmol/L (8-16); BLOOD UREA NITROGEN 14 mg/dL (7-26); BUN/CREATININE RATIO 16 (6-25); CALCIUM 9.2 mg/dL (8.4-10.2); CARBON DIOXIDE 30 mmol/L (22-29); CHLORIDE 103 mmol/L (98-107); EST GLOMERULAR FILTRATION RATE > 60 ML/MIN (60-); GLUCOSE 92 mg/dL (74-118); POTASSIUM 4.3 mmol/L (3.5-5.1); SODIUM 141 mmol/L (136-145)
[2018-09-08] MEDS: METHADONE HCL 10 MG TAB PO SCH (08:32)
--- NOTE | 2018-09-08 09:41 | NUR ---
SPOKE WITH Vijay WILDER REGARDING PATIENT'S ISOLATION; VANCO TROUGH ORDER PLACED.
[2018-09-08] MEDS: FAMOTIDINE 20 MG TAB PO SCH ×2 (10:06→21:08)
--- NOTE | 2018-09-08 10:27 | NUR ---
SPOKE WITH DR. ARRINGTON REGARDING PATIENT CARE - RECEIVED ORDER FOR NICOTINE PATCH.
--- NOTE | 2018-09-08 10:35 | NUR ---
CALL PLACED OUT TO DR. MCNEILL REGARDING DISCHARGE CLEARANCE- AWAITING CALLBACK.
--- NOTE | 2018-09-08 10:59 | NUR ---
CALL PLACED OUT TO DR. MCNEILL TO INFORM HIM PATIENT WILL REMAIN IN THE HOSPITAL- AWAITING CALLBACK.
--- NOTE | 2018-09-08 13:03 | NUR ---
PT FOUND OUTSIDE GOING TO SMOKE ESCORTED BACK UPSTAIRS EXPLAINED HE IS IN ISOLATION AND NEEDS TO STAY IN HIS ROOM NOTIFIED [employer]PERATIONS OFFICER JARET
[2018-09-08] MEDS: NICOTINE 21 MG/EA PATCH TOP SCH (13:05)
--- NOTE | 2018-09-08 13:11 | NUR ---
IMM LETTER EXPLAINED TO THE PT. CM EXPLAINED PURPOSE OF LETTER AGAIN. PT VERBALIZED UNDERSTANDING THIS WAS A MESSAGE FROM [facility], NOT A DC. IMM LETTER [place] SIGNED. COPY TO CHART AND COPY TO CHART.
[2018-09-08] MEDS: GABAPENTIN 100 MG CAP PO SCH ×2 (14:55→21:08)
--- NOTE | 2018-09-08 15:21 | Progress Note ---
DATE: 09/08/2018 Psychiatric Progress Note SUBJECTIVE: The patient evaluated and events noted. The patient is in the room. He is alert, awake, and oriented to situation. He states that his muscle ache has reduced significantly. He denies depression. He continued to complain of anxiety. He has been asking for Valium and Klonopin. I discussed with the patient that he is currently on together with methadone can significantly affect his respiratory system. The patient verbalized understanding. He denies any hallucination. He denies any problem with appetite. He reports I offered Seroquel in the morning for him, but he refused at this time. ASSESSMENT: 1. Adjustment disorder with mixed mood, depression, and anxiety. 2. Rule out bipolar. 3. Polysubstance abuse (amphetamine and cannabinoid). 4. Methadone use. PLAN: 1. Continue with Seroquel 50 mg p.o. at bedtime. 2. Continue Seroquel 25 mg p.o. q.6h. p.r.n. 3. Continue Haldol 2 mg IM q.6h. p.r.n. 4. The patient is on methadone, add Neurontin three times a day. 5. Supportive therapy. 6. Monitor for mood. Dictated by Kiki Moore PA-C MD NICOLLE BrunoV/RAINER /[id number]
--- NOTE | 2018-09-08 19:02 | NUR ---
PATIENT IN STABLE CONDITION WITH NO S/S OF RESPIRATORY DISTRESS. NO PAIN VOICED- PATIENT RECENTLY RECEIVED PAIN MEDICATION. LEFT NECK DRESSING IS INTACT AND DRY. PRESENT IN ROOM. CALL LIGHT IS WITHIN REACH, PATIENT INSTRUCTED TO CALL FOR ASSISTANCE NEEDED. BEDSIDE REPORT GIVEN TO ONCOMING NURSE.
--- NOTE | 2018-09-08 19:25 | NUR ---
Received patient awake, at the bedside, dressing noted to the left side of the neck, call light within easy reach, advised to call for assistance when needed, will continue to monitor
[2018-09-08] MEDS: QUETIAPINE FUMARATE 25 MG TAB PO SCH (21:08)
[2018-09-09] VITALS (7 sets, daily range): BP systolic 139–172; BP diastolic 79–100
[2018-09-09] MEDS: VANCOMYCIN 1GM/NS 250 ML 250 ML IV SCH (02:24)
[2018-09-09] MEDS: HYDROCODONE/APAP 7.5MG-325MG 1 EA TAB PO PRN ×6 (02:25→22:32)
[2018-09-09] MEDS: PIPER-TAZ 3.375 GM 50 ML IV SCH (06:26)
--- NOTE | 2018-09-09 06:26 | NUR ---
Patient refused dressing changed at this time
--- NOTE | 2018-09-09 07:20 | NUR ---
PATIENT IS IN STABLE CONDITION WITH NO S/S OF RESPIRATORY DISTRESS. NO PAIN VOICED BY PATIENT- PATIENT RECENTLY RECEIVED NORCO. DRESSING INTACT- WILL CHANGE DRESSING THIS MORNING. CALL LIGHT IS WITHIN REACH, PATIENT INSTRUCTED TO CALL FOR ASSISTANCE NEEDED.
[2018-09-09] MEDS: NICOTINE 21 MG/EA PATCH TOP SCH (08:42)
[2018-09-09] MEDS: GABAPENTIN 100 MG CAP PO SCH ×3 (08:42→20:57)
[2018-09-09] MEDS: METHADONE HCL 10 MG TAB PO SCH (08:42)
--- NOTE | 2018-09-09 09:44 | NUR ---
Vijay WILDER ON THE UNIT- SPOKE WITH AL REGARDING PATIENT'S RECENT VANCO TROUGH- NEW ORDERS RECEIVED.
[2018-09-09] MEDS: FAMOTIDINE 20 MG TAB PO SCH ×2 (09:45→21:00)
--- NOTE | 2018-09-09 11:38 | NUR ---
PATIENT EXITED HIS ROOM AND WAS TRYING TO WALK OFF THE UNIT BUT RN NOTICED THE PATIENT. RN ASKED THE PATIENT TO RETURN TO HIS ROOM. PATIENT WAS CARRYING HIS CUP AROUND AND RN EXPLAINED TO THE PATIENT HE CAN NOT BRING CUPS OUT OF HIS ROOM. RN INSTRUCTED THE PATIENT TO CALL FOR ASSISTANCE.
[2018-09-09] MEDS: VANCOMYCIN HCL 1.25 GM in SODIUM CHLORIDE 0.9% 250ML 250 ML IV SCH (13:59)
[2018-09-09] MEDS ORDERED: VANCOMYCIN 1GM/NS 250 ML 250 ML IV SCH (14:00)
--- NOTE | 2018-09-09 14:32 | NUR ---
DRESSING CHANGE APPLIED TO PATIENT'S NECK WOUND- PATIENT TOLERATED DRESSING CHANGE WELL. NORCO GIVEN TO PATIENT.
--- NOTE | 2018-09-09 17:46 | NUR ---
PATIENT AMBULATED OUTSIDE THE ROOM AGAIN- RN FOUND PATIENT COMING DOWN THE FLORES. RN ASKED PATIENT HOW HE EXITED THE UNIT AND THE PATIENT STATED HE IS WALKING OFF THE UNIT BY EXITING THE SIDE STAIRWAY. RN EXPLAINED TO THE PATIENT THE IMPORTANCE OF HIM REMAINING IN THE ROOM D/T HIS INFECTION AND IV ACCESS. PATIENT ACKNOWLEDGES UNDERSTANDING AND SHAKES HIS HEAD.
--- NOTE | 2018-09-09 19:11 | NUR ---
PATIENT IS IN STABLE CONDITION WITH NO S/S OF RESPIRATORY DISTRESS. PAIN MEDICATION RECENTLY GIVEN TO THE PATIENT. DRESSING INTACT. CALL LIGHT IS WITHIN REACH, PATIENT INSTRUCTED TO CALL FOR ASSISTANCE NEEDED. BEDSIDE REPORT GIVEN TO ONCOMING NURSE.
--- NOTE | 2018-09-09 19:30 | NUR ---
patient received awake, alert, lying quietly in bed. no c/o pain noted. dressing left neck c,d,i with pin gregor drain intact. pm assessment complete. patient instructed to call for assistance when needed.
[2018-09-09] MEDS: QUETIAPINE FUMARATE 25 MG TAB PO SCH (20:57)
--- NOTE | 2018-09-09 22:32 | NUR ---
patient medicated with norco 7.5/325 mg po for c/o left neck pain 5/10 at this time.
[2018-09-10] VITALS (7 sets, daily range): BP systolic 113–143; BP diastolic 54–91
[2018-09-10] MEDS: VANCOMYCIN HCL 1.25 GM in SODIUM CHLORIDE 0.9% 250ML 250 ML IV SCH ×2 (01:33→16:21)
[2018-09-10] MEDS: HYDROCODONE/APAP 7.5MG-325MG 1 EA TAB PO PRN ×5 (02:36→23:07)
--- NOTE | 2018-09-10 02:36 | NUR ---
patient medicated with norco 7.5 mg po for c/o left neck pain 5/10 at this time.
--- NOTE | 2018-09-10 04:40 | NUR ---
right picc line dressing changed at this time. attempted to flush lines. red line sluggish and difficult to flush. purple line doesn't flush at all. unable to 0500 labs from picc at this time. patient made aware that lab need to draw his am labs this am. patient verbalizes understanding of this.
--- NOTE | 2018-09-10 06:00 | NUR ---
patient refuses to be stuck for am labs. attempted to draw from picc line and was able to do so at this time.
[2018-09-10 06:49] LABS: HEMATOCRIT 39.8 % (38.2-49.6); HEMOGLOBIN 13.3 g/dL (14.0-18.0); MEAN CORPUSCULAR HEMOGLOBIN 29.6 pg (28-32); MEAN CORPUSCULAR HGB CONC 33.4 g/dL (31-35); MEAN CORPUSCULAR VOLUME 88.4 fL (81-99); PLATELET COUNT 279 x10e3/uL (140-360); RED CELL DISTRIBUTION WIDTH 12.4 % (11.7-14.4)
[2018-09-10 07:05] LABS: ANION GAP 13.1 mmol/L (8-16); BLOOD UREA NITROGEN 18 mg/dL (7-26); BUN/CREATININE RATIO 18 (6-25); CALCIUM 9.4 mg/dL (8.4-10.2); CARBON DIOXIDE 28 mmol/L (22-29); CHLORIDE 101 mmol/L (98-107); CREATININE, SERUM 1.02 mg/dL (0.72-1.25); EST GLOMERULAR FILTRATION RATE > 60 ML/MIN (60-); GLUCOSE 138 mg/dL (74-118); POTASSIUM 4.1 mmol/L (3.5-5.1); SODIUM 138 mmol/L (136-145)
--- NOTE | 2018-09-10 07:25 | NUR ---
PATIENT IS AWAKE AND IN STABLE CONDITION WITH NO S/S OF RESPIRATORY DISTRESS. NO PAIN VOICED. DRESSING TO LEFT NECK AREA IS INTACT- MINIMUM DRAINAGE NOTED. CALL LIGHT IS WITHIN REACH, PATIENT INSTRUCTED TO CALL FOR ASSISTANCE NEEDED.
[2018-09-10] MEDS: METHADONE HCL 10 MG TAB PO SCH (09:32)
[2018-09-10] MEDS: GABAPENTIN 100 MG CAP PO SCH ×3 (09:32→20:45)
[2018-09-10] MEDS: FAMOTIDINE 20 MG TAB PO SCH ×2 (09:32→20:45)
[2018-09-10] MEDS: NICOTINE 21 MG/EA PATCH TOP SCH (09:32)
[2018-09-10] MEDS ORDERED: ALTEPLASE RECOMBINANT 2 MG/2 ML VIAL IV PRN (14:00)
--- NOTE | 2018-09-10 14:36 | NUR ---
DRESSING CHANGE COMPLETED TO PATIENT'S LEFT NECK WOUND AREA- PRASANNA NOTED. DRESSING DRY AND INTACT.
--- NOTE | 2018-09-10 19:01 | NUR ---
PATIENT IS IN STABLE CONDITION WITH NO S/S OF RESPIRATORY DISTRESS. DOUBLE LUMENS ON PICC LINE FLUSH AND DRAW BACK BLOOD- CATHFLO ADMINISTERED DURING THE DAY. CALL LIGHT IS WITHIN REACH, PATIENT INSTRUCTED TO CALL FOR ASSISTANCE NEEDED. BEDSIDE REPORT GIVEN TO ONCOMING NURSE.
--- NOTE | 2018-09-10 19:35 | NUR ---
PATIENT EXITED EMERGENCY STAIRS OFF UNIT. SECURITY CALLED TO HELP FIND PATIENT.
--- NOTE | 2018-09-10 19:45 | NUR ---
PATIENT ESCORTED BACK UPSTAIRS TO ROOM AND EXPLAINED HE IS ON CONTACT ISOLATION.
[2018-09-10] MEDS: QUETIAPINE FUMARATE 25 MG TAB PO SCH (20:45)
--- NOTE | 2018-09-10 23:35 | NUR ---
PATIENT WENT TO ELEVATORS, CLAIMED HE WAS ONLY GOING TO VENDING MACHINE AND NOT OUTSIDE TO SMOKE.
[2018-09-11] VITALS: BP 131/80
[2018-09-11] MEDS: HYDROCODONE/APAP 7.5MG-325MG 1 EA TAB PO PRN ×3 (03:15→11:15)
[2018-09-11] MEDS: VANCOMYCIN HCL 1.25 GM in SODIUM CHLORIDE 0.9% 250ML 250 ML IV SCH (03:15)
[2018-09-11 08:00] VITALS: BP 119/68
[2018-09-11] MEDS: FAMOTIDINE 20 MG TAB PO SCH (08:38)
[2018-09-11] MEDS: GABAPENTIN 100 MG CAP PO SCH (08:38)
[2018-09-11] MEDS: METHADONE HCL 10 MG TAB PO SCH (08:38)
[2018-09-11] MEDS: NICOTINE 21 MG/EA PATCH TOP SCH (08:39)
[2018-09-11 08:49] VITALS: BP 119/68
--- NOTE | 2018-09-11 09:37 | NUR ---
CM SPOKE WITH DR MCNEILL REGARDING PT'S DC ORDER TO DC HOME TODAY WITH DRAIN IN APPT MADE TO HAVE DRAIN REMOVED BY DR MCNEILL THIS TUESDAY SPOKE WITH DR CHAMBERS REGARDING ABOVE PLAN AND REQUESTED DC HOME CALL PLACED TO AL WITH DR GARY TO ASK HIM TO WRITE RX FOR ABX PO TODAY WHEN HE MAKES ROUNDS (PROGRESS NOTES SUGGEST HE IS DISCHARGING HOME ON PO DOXYCYCLINE) NURSEALFREDO UPDATED ON ABOVE EXPECT DC HOME TODAY
--- NOTE | 2018-09-11 09:40 | NUR ---
ABOVE PLAN DISCUSSED WITH AND SIGNIFICANT OTHER IN ROOM BOTH UNDERSTAND AND ARE AGREEABLE
--- NOTE | 2018-09-11 09:41 | NUR ---
DR MASON MCNEILL [phone] [facility] [address] Tuesday09/14/18 11:50
--- NOTE | 2018-09-11 11:22 | NUR ---
CALLED DR. DILLON, [facility]S OFFICE SERVICE, SPOKE TO AWA REGARDING MEDICAL DOCTORS INTENT TO DISCHARGE AND NEED TO BE SEEN BY DR. DILLON PRIOR TO DISCHAGE, AWA STATED THAT SHE WOULD NOTIFY DR. DILLON.
[2018-09-11 12:00] VITALS: BP 120/65
--- NOTE | 2018-09-11 13:36 | NUR ---
CALLED DR. MCNEILL, [facility], SPOKE TO RON REGARDING PATIENT REQUESTING PAIN MEDICATION FOR DISCHARGE,
--- NOTE | 2018-09-11 13:37 | NUR ---
IMM LETTER WAS SIGNED AND COPY TO PT AND COPY TO CHART. Addendum: 09/11/18 at 1338 by Ani Quinn CM PLAN IS TO DC HOME TODAY.
--- NOTE | 2018-09-11 13:59 | Progress Note ---
DATE: 09/11/2018 Psychiatric Progress Note SUBJECTIVE: The patient is evaluated and events noted. the patient is in the room. He is alert, awake and oriented to situation. He continues to report anxiety. He appears to be med seeking. He was recommended to have on minimized benzos and he is on methadone, but he . He reports doing fairly okay. He denies sleeping issues. He denies any hallucination. He denies any side effects from medication. ASSESSMENT: 1. Adjustment disorder, mixed mood with depression and anxiety. 2. Rule out bipolar. 3. Polysubstance abuse (amphetamine and cannabinoids). 4. Methadone use. PLAN: 1. Continue with Seroquel 50 mg p.o. at bedtime. 2. Continue with Seroquel 25 mg p.o. q.6 hours p.r.n. 3. Continue with Haldol 2 mg IM q.6 hours p.r.n. 4. The patient is on methadone. 5. Continue with Neurontin 200 mg p.o. three times a day. 6. Supportive therapy. 7. Monitor for mood. 8. Discussed with nursing staff. 9. The patient is cleared from Psychiatry standpoint. Dictated by Kiki Moore PA-C Ping Moss MD QTV/MODL /[id number]
--- NOTE | 2018-09-11 14:03 | NUR ---
PATIENT PLACED IN [place] POSITION, PICC LINE SCRUBBED WITH CHLORHEXADINE, REMOVED PICC LINE FROM HIS RIGHT ARM, HELD PRESSURE FOR 15 MINUTES, 4X4 AND TEGADERM PLACED ON PICC LINE SITE.
--- NOTE | 2018-09-12 04:28 | Discharge Summary ---
HOSPITAL COURSE: The patient admitted through the emergency room to Dr. Barrios's service. Also seen by Dr. Kam and Dr. Dumont. A 38-year-old gentleman complaining of neck pain. Admitted on the . History of heroin injection two weeks ago on the left side of the neck, noted particularly pain, swelling and redness. Came to the emergency room. An abscess was noted in the supraclavicular area above the pleural reflection. This grew Staph aureus, sensitive to doxycycline. The patient was initially treated with vancomycin. Required surgical incision and drainage and the drain was left. The patient is on methadone maintenance program. He has a history of seizure disorder. He has bilateral hip replacement related to slipped capital epiphysis. The patient smoked for 20 years. He also seen by Dr. Moss; seen for the addiction problem. The patient gradually improved with IV antibiotics. Discharged on oral doxycycline and to resume his methadone maintenance. Give him a nicotine patch. I would defer psychiatric medication to Dr. Moss. Drug screen was positive for methadone, methamphetamine, cannabinoid. Thank you for this kind referral. MD TY Borden/MODL /[id number]
== END 2018-09-11 14:56 | disposition home or self-care (01) | DRG 603 ==
LOC: ER 14:21 → ERHOLD 22:54 → MED/SURG3 23:53
PROVIDERS: ADMIT Internal Medicine; ATTEND Internal Medicine
PROC: 0J9500Z Drainage of Left Neck Subcutaneous Tissue and Fascia with Drainage Device, Open Approach (ICD-10-PCS; principal; 2018-09-05)
PROC: 02HV33Z Insertion of Infusion Device into Superior Vena Cava, Percutaneous Approach (ICD-10-PCS; 2018-09-05)
DX: L02.414 Cutaneous abscess of left upper limb (principal); B95.62 Methicillin resistant Staphylococcus aureus infection as the cause of diseases classified elsewhere; F43.23 Adjustment disorder with mixed anxiety and depressed mood; F15.10 Other stimulant abuse, uncomplicated; F12.10 Cannabis abuse, uncomplicated; F11.10 Opioid abuse, uncomplicated; G89.29 Other chronic pain; E66.9 Obesity, unspecified; Z68.37 Body mass index [BMI] 37.0-37.9, adult; M72.8 Other fibroblastic disorders; F17.210 Nicotine dependence, cigarettes, uncomplicated
CPT/HCPCS: 36415; 36569; 70491; 71045; 71046; 74176; 80048; 80053; 80202; 80307; 82550; 82553; 83605; 83690; 83735; 84484; 85007; 85025; 85027; 85610; 85730; 87040; 87071; 87075; 87186; 87205; 90471; 90714; 93005; 94640; 99284; J1100; J2001; J2250; J2270; J2405; J2543; J2997; J3370; J7030; J7050; Q9967

== ENCOUNTER 2023-03-16 17:33 | Emergency (ER) | payer SELFPAY ==
[~2023-03-16] VITALS: Ht 180.3 cm; Wt 121.6 kg
[2023-03-16 18:00] VITALS: O2SAT 100
== END 2023-03-16 20:17 | disposition left against medical advice (07) ==
LOC: ER 18:10
DX: M25.551 Pain in right hip (principal)

== ENCOUNTER 2025-02-23 01:35 | Observation (INO) | payer MEDICARE ==
[~2025-02-23] VITALS: Ht 180.3 cm; Wt 102.1 kg
[2025-02-23] MEDS: HYDROCODONE/APAP 10MG-325MG TAB PO ONE (05:18)
[2025-02-23 05:45] LABS: BASOPHILS % 0.8 % (0.0-1.0); EOSINOPHILS % 3.5 % (0.0-6.0); LYMPHOCYTES % 28.6 % (18.0-39.1); MONOCYTES % 11.3 % (4.4-11.3); NEUTROPHILS % 55.5 % (38.7-80.0); RED CELL DISTRIBUTION WIDTH 13.0 % (11.7-14.4)
[2025-02-23 05:57] LABS: EST GLOMERULAR FILTRATION RATE 111.0 ML/MIN (>=60)
[2025-02-23] MEDS ORDERED: ETOMIDATE 2 MG/ML 10 ML INJ IV STA ×2 (07:01→07:59)
[2025-02-23] MEDS: FENTANYL CITRATE/PF 100MCG/2 ML INJ IV ONE ×2 (08:12→08:58)
[2025-02-23] MEDS: ETOMIDATE 40 MG/ 20ML VIAL IV STA (08:12)
[2025-02-23] MEDS ORDERED: FENTANYL CITRATE/PF 100MCG/2 ML INJ ONE ×2 (08:21→20:05)
[2025-02-23] MEDS ORDERED: PROPOFOL IV EMULSION 10 MG/ML 20 ML VIAL ONE ×2 (08:23→20:08)
[2025-02-23] MEDS: PROPOFOL IV EMULSION 10 MG/ML 20 ML VIAL IV ONE (08:28)
[2025-02-23] MEDS: SODIUM CHLORIDE 0.9% 1000ML 1,000 ML IV SCH (10:45)
[2025-02-23] MEDS ORDERED: HYDROMORPHONE 1MG/1ML INJ IM PRN (11:00)
[2025-02-23] MEDS ORDERED: ONDANSETRON HCL INJ 2MG/ML 2ML 2 MG/ML VIAL IV PRN (12:15)
[2025-02-23] MEDS: HYDROMORPHONE 1MG/1ML INJ IV PRN (12:25)
[2025-02-23 13:08] VITALS: PULSE 67; RESP 12; TEMP 97.8
[2025-02-23 14:23] VITALS: BP 126/84; PULSE 51; RESP 16; TEMP 97.9
[2025-02-23 16:00] VITALS: BP 133/98; PULSE 53; RESP 16; TEMP 97.8; O2SAT 98
[2025-02-23 17:29] LABS: INR 0.98
[2025-02-23 20:05] VITALS: BP 133/83; PULSE 63; RESP 19; TEMP 98; O2SAT 98
[2025-02-23] MEDS ORDERED: ROCURONIUM BROMIDE 1 ML IV ONE (20:05)
[2025-02-23] MEDS ORDERED: SUCCINYLCHOLINE CHLORIDE 20 MG/ML 10ML VIAL ONE (20:05)
[2025-02-23] MEDS ORDERED: LIDOCAINE HCL 2% LOCAL INJ 5 ML SDV VIAL INJ ONE (20:05)
[2025-02-23 23:56] VITALS: BP 133/83; PULSE 63; RESP 19; TEMP 98; O2SAT 98
[2025-02-24 02:32] VITALS: BP 127/84; PULSE 56; RESP 17; TEMP 97.6; O2SAT 100
[2025-02-24] MEDS ORDERED: PROPOFOL IV EMULSION 10 MG/ML 20 ML VIAL ONE (06:51)
[2025-02-24] MEDS ORDERED: FENTANYL CITRATE/PF 100MCG/2 ML INJ ONE (06:53)
[2025-02-24 08:36] VITALS: BP 115/72; PULSE 59; RESP 18; TEMP 98; O2SAT 96
[2025-02-24] MEDS ORDERED: METHADONE HCL 10 MG TAB PO SCH (11:00)
== END 2025-02-24 11:25 | disposition home or self-care (01) ==
LOC: ER 01:42 → ERHOLD 10:56 → MED/SURG 13:31
PROVIDERS: ADMIT Internal Medicine; ATTEND Internal Medicine
DX: T84.021A Dislocation of internal left hip prosthesis, initial encounter (principal); Z96.643 Presence of artificial hip joint, bilateral; Z79.891 Long term (current) use of opiate analgesic; Z72.0 Tobacco use; Z91.199 Patient's noncompliance with other medical treatment and regimen due to unspecified reason
CPT/HCPCS: 27266 ×2; 36415; 36569; 71045; 73502 ×2; 80048; 85025; 85610; 85730; 86850; 86900; 99284; G0378 ×2; J0330; J1171 ×2; J2003; J2704 ×2; J3010 ×2; J7030